=== PATIENT | male | born 2000 | race Caucasian/White ===

== ENCOUNTER 2021-01-15 19:49 | Emergency (ER) | payer SELFPAY ==
--- NOTE | 2021-01-15 20:39 | ER ---
Nurse's Notes [facility] Name: Cecilio Baxter Age: 20 yrs Sex: Male : 2000 Arrival Date: 01/15/2021 Time: 19:52 Bed 8 Private MD: Diagnosis: Dysuria Presentation: 01/15 20:01 Chief complaint: Patient states: yellow penile discharge and burning with urination for em 2 days, thinks it is STD. Coronavirus screen: Client denies travel out of the [place] in the last 14 days. Ebola Screen: Patient negative for fever greater than or equal to 101.5 degrees Fahrenheit, and additional compatible Ebola Virus Disease symptoms Patient denies exposure to infectious person. Patient denies travel to an Ebola-affected area in the 21 days before illness onset. No symptoms or risks identified at this time. Initial Sepsis Screen: Does the patient meet any 2 criteria? HR > 90 bpm. No. Patient's initial sepsis screen is negative. Does the patient have a suspected source of infection? No. Patient's initial sepsis screen is negative. Risk Assessment: Do you want to hurt yourself or someone else? Patient reports no desire to harm self or others. Onset of symptoms was January 13, 2021. 20:01 Method Of Arrival: Ambulatory em 20:01 Acuity: FIDEL 4 em Historical: - Allergies: 20:04 No Known Allergies; em - Home Meds: 20:04 None [Active]; em - PMHx: 20:04 Asthma; em - PSHx: 20:04 None; em - Immunization history:: Adult Immunizations up to date. - Social history:: Smoking status: Patient reports the use of cigarette tobacco products, smokes one-half pack cigarettes per day. Screenin:19 Abuse screen: Denies threats or abuse. Nutritional screening: No deficits noted. ea Tuberculosis screening: No symptoms or risk factors identified. Fall Risk None identified. Assessment: 20:18 General: Appears in no apparent distress. Behavior is calm, cooperative, appropriate ea for age. Pain: Denies pain. Neuro: Level of Consciousness is awake, alert, obeys commands, Oriented to person, place, time, situation. Cardiovascular: Patient's skin is warm and dry. Respiratory: Airway is patent Respiratory effort is even, unlabored, Respiratory pattern is regular, symmetrical. : Reports discharge, from penis that is. Derm: Skin is pink, warm \T\ dry. 20:45 Reassessment: Patient and/or family updated on plan of care and expected duration. Pain ea level reassessed. Patient is alert, oriented x 3, equal unlabored respirations, skin warm/dry/pink. Discharge instruction given to patient verbalized the understanding of instruction. Pt left ED ambulatory tolerating well. Vital Signs: 20:01 BP 133 / 80; Pulse 100; Resp 18; Temp 98.9; Pulse Ox 100% on R/A; Weight 83.91 kg; em Height 6 ft. 0 in. (182.88 cm); Pain 8/10; 20:01 Body Mass Index 25.09 (83.91 kg, 182.88 cm) em ED Course: 19:52 Patient arrived in ED. am4 20:03 Austin Cristina PA is PHCP. [facility] 20:03 Margarito Souza MD is Attending Physician. [facility] 20:04 Triage completed. em 20:04 Arm band placed on. em 20:18 Anna Prather, RN is Primary Nurse. ea 20:19 Patient has correct armband on for positive identification. Bed in low position. Call ea light in reach. 20:46 No provider procedures requiring assistance completed. Patient did not have IV access ea during this emergency room visit. Administered Medications: 20:40 Drug: Rocephin (cefTRIAXone) 250 mg Route: IM; Site: left deltoid; rr5 20:47 Follow up: Response: Medication administered at discharge. ea 20:43 Drug: AZITHromycin 1 grams Route: PO; rr5 20:47 Follow up: Response: Medication administered at discharge. ea 20:43 Drug: Flagyl 2 grams Route: PO; rr5 20:47 Follow up: Response: Medication administered at discharge. ea Outcome: 20:39 Discharge ordered by . [facility] 20:46 Discharged to home ambulatory. ea 20:46 Condition: stable 20:46 Discharge instructions given to patient, Instructed on discharge instructions, follow up and referral plans. Demonstrated understanding of instructions, follow-up care. 20:46 Patient left the ED. ea Signatures: Austin Cristina PA PA jmm Munoz, Edgar, RN RN Anna Prather RN RN ea Roque, Raymond, RN RN rr5 Araceli Santoyo am4
--- NOTE | 2021-01-15 20:40 | EDPHYS ---
Physician Documentation [facility] Name: Cecilio Baxter Age: 20 yrs Sex: Male : 2000 Arrival Date: 01/15/2021 Time: 19:52 Bed 8 Private MD: ED Physician Margarito Souza HPI: 01/15 20:36 This 20 yrs old Male presents to ER via Ambulatory with complaints of jmm Discharge. 20:36 The patient presents with urinary symptoms, dysuria. Onset: The symptoms/episode jmm began/occurred gradually, 2 day(s) ago. Modifying factors: The symptoms are alleviated by nothing, the symptoms are aggravated by nothing. Associated signs and symptoms: Pertinent positives: dysuria, Pertinent negatives: fever. The patient has not experienced similar symptoms in the past. . Historical: - Allergies: 20:04 No Known Allergies; em - Home Meds: 20:04 None [Active]; em - PMHx: 20:04 Asthma; em - PSHx: 20:04 None; em - Immunization history:: Adult Immunizations up to date. - Social history:: Smoking status: Patient reports the use of cigarette tobacco products, smokes one-half pack cigarettes per day. ROS: 20:36 Constitutional: Negative for fever, chills, and weight loss, Cardiovascular: Negative jmm for chest pain, palpitations, and edema, Respiratory: Negative for shortness of breath, cough, wheezing, and pleuritic chest pain. 20:36 : Positive for urinary symptoms. 20:36 All other systems are negative. Exam: 20:36 Constitutional: This is a well developed, well nourished patient who is awake, alert, jmm and in no acute distress. Head/Face: atraumatic. Eyes: EOMI, no conjunctival erythema appreciated ENT: Moist Mucus Membranes Neck: Trachea midline, Supple Chest/axilla: Normal chest wall appearance and motion. Cardiovascular: Regular rate and rhythm. No edema appreciated Respiratory: Normal respirations, no respiratory distress appreciated Abdomen/GI: Non distended, soft Back: Normal ROM Skin: General appearance color normal MS/ Extremity: Moves all extremities, no obvious deformities appreciated, no edema noted to the lower extremities Neuro: Awake and alert, normal gait Psych: Behavior is normal, Mood is normal, Patient is cooperative and pleasant Vital Signs: 20:01 BP 133 / 80; Pulse 100; Resp 18; Temp 98.9; Pulse Ox 100% on R/A; Weight 83.91 kg; em Height 6 ft. 0 in. (182.88 cm); Pain 8/10; 20:01 Body Mass Index 25.09 (83.91 kg, 182.88 cm) em MDM: 20:09 Patient medically screened. [facility] 20:37 Data reviewed: vital signs, nurses notes. Counseling: I had a detailed discussion with sameer the patient and/or guardian regarding: the historical points, exam findings, and any diagnostic results supporting the discharge/admit diagnosis, the need for outpatient follow up, to return to the emergency department if symptoms worsen or persist or if there are any questions or concerns that arise at home. 01/15 20:31 Order name: GC (GONORR/CHLAMYDIA) Probe [facility] 01/15 20:31 Order name: GC (Todd/Chl) Probe CX/URE EDOH Administered Medications: 20:40 Drug: Rocephin (cefTRIAXone) 250 mg Route: IM; Site: left deltoid; rr5 20:47 Follow up: Response: Medication administered at discharge. ea 20:43 Drug: AZITHromycin 1 grams Route: PO; rr5 20:47 Follow up: Response: Medication administered at discharge. ea 20:43 Drug: Flagyl 2 grams Route: PO; rr5 20:47 Follow up: Response: Medication administered at discharge. braden Disposition: 01/16 05:07 Co-signature as Attending Physician, Margarito Souza MD I agree with the assessment and [facility] plan of care. Disposition: 01/15/21 20:39 Discharged to Home. Impression: Dysuria. - Condition is Stable. - Discharge Instructions: Chlamydia, Male, Dysuria, Gonorrhea, Sexually Transmitted Disease. - Medication Reconciliation Form, Thank You Letter, Antibiotic Education, Prescription Opioid Use, Work release form form. - Follow up: Private Physician; When: 2 - 3 days; Reason: Recheck today's complaints, Continuance of care, Re-evaluation by your physician. Signatures: Dispatcher [employer] Margarito Acharya MD MD cha Mickail, Joel, PA PA jmm Munoz, Edgar, RN Anna Tabor RN Osvaldo Wood ea RN RN rr5 Corrections: (The following items were deleted from the chart) 01/15 20:46 20:39 01/15/2021 20:39 Discharged to Home. Impression: Dysuria. Condition is Stable. ea Forms are Medication Reconciliation Form, Thank You Letter, Antibiotic Education, Prescription Opioid Use. Follow up: Private Physician; When: 2 - 3 days; Reason: Recheck today's complaints, Continuance of care, Re-evaluation by your physician. sameer
[2021-01-15] MEDS ORDERED: AZITHROMYCIN 250 MG TAB ONE (20:51)
[2021-01-15] MEDS ORDERED: metroNIDAZOLE 500 MG TABLET ONE (20:52)
[2021-01-15] MEDS ORDERED: WATER FOR INJ,STERILE 10 ML ONE (20:52)
[2021-01-15] MEDS ORDERED: CEFTRIAXONE 250 MG/VIAL ONE (20:52)
[2021-01-15 22:27] VITALS: BP 133/80; TEMP 98.9; O2SAT 100
[2021-01-19 05:10] LABS: C.trachomatis RNA,TMA Detected (Not Detected)
== END 2021-01-15 20:46 | disposition home or self-care (01) ==
LOC: ER 19:49
DX: R30.0 Dysuria (principal); F17.210 Nicotine dependence, cigarettes, uncomplicated
CPT/HCPCS: 87490; 87590; 96372; 99283; J0696

== ENCOUNTER 2021-02-15 14:33 | Emergency (ER) | payer BC, SELFPAY ==
[2021-02-15] MEDS ORDERED: IBUPROFEN 200 MG TAB PO ONE (17:04)
[2021-02-15] MEDS ORDERED: IBUPROFEN 400 MG TAB ONE (17:05)
[2021-02-15] MEDS ORDERED: ALBUTEROL 2.5 MG/3 ML NEB SOL ONE (17:05)
[2021-02-15] MEDS ORDERED: IPRATROPIUM BROM 0.5MG/2.5ML ONE (17:05)
--- NOTE | 2021-02-15 17:43 | RAD REPORT ---
EXAM DESCRIPTION: RAD - Lumbar Spine 3 Views - 02/15/2021 5:31 pm CLINICAL HISTORY: Back pain FINDINGS: The alignment of the lumbar spine is satisfactory. No fracture or dislocation is seen. No bone or joint abnormality seen
--- NOTE | 2021-02-15 17:46 | ER ---
Nurse's Notes [facility] Name: Cecilio Baxter Age: 21 yrs Sex: Male : 2000 Arrival Date: 02/15/2021 Time: 14:34 Bed 14 Private MD: Diagnosis: Asthma Presentation: 02/15 14:52 Chief complaint: Patient states: Was working on my car, lifted something up on ca1 Thursday. An hour after my lower back started hurting, couldn't lift anything, couldn't sleep with the pain. And in the last 3 - 4 days, been having almost asthma attacks, and couldn't fine inhalers in my house. Denies cough. Coronavirus screen: Client denies travel out of the [place] in the last 14 days. difficulty breathing, shortness of breath, Client presents with at least one sign or symptom that may indicate coronavirus-19. Standard/surgical mask placed on the client. Provider contacted for isolation considerations. Ebola Screen: Patient negative for fever greater than or equal to 101.5 degrees Fahrenheit, and additional compatible Ebola Virus Disease symptoms Patient denies exposure to infectious person. Patient denies travel to an Ebola-affected area in the 21 days before illness onset. No symptoms or risks identified at this time. Initial Sepsis Screen: Does the patient meet any 2 criteria? No. Patient's initial sepsis screen is negative. Does the patient have a suspected source of infection? No. Patient's initial sepsis screen is negative. Risk Assessment: Do you want to hurt yourself or someone else? Patient reports no desire to harm self or others. Onset of symptoms was February 15, 2021. 14:52 Method Of Arrival: Ambulatory ca1 14:52 Acuity: FIDEL 3 ca1 Historical: - Allergies: 14:56 No Known Allergies; ca1 - Home Meds: 14:56 None [Active]; ca1 - PMHx: 14:56 Asthma; ca1 - PSHx: 14:56 None; ca1 - Immunization history:: Flu vaccine is not up to date. - Social history:: Smoking status: Patient/guardian denies using tobacco, but has a distant history of tobacco abuse, Patient/guardian denies using alcohol, street drugs, The patient lives with family. - Family history:: not pertinent. Screenin:52 Abuse screen: Denies threats or abuse. Nutritional screening: No deficits noted. bw Tuberculosis screening: No symptoms or risk factors identified. Fall Risk None identified. Assessment: 16:52 Pain: Complains of pain in lower back pain. Neuro: Level of Consciousness is awake, bw alert, obeys commands, Oriented to person, place, time, situation, Credit Administration Specialist are equal bilaterally Moves all extremities. Gait is steady, Speech is normal, Facial symmetry appears normal, Pupils are PERRLA. Cardiovascular: No deficits noted. Respiratory: Reports shortness of breath on exertion. GI: No deficits noted. : No deficits noted. EENT: No deficits noted. Derm: No deficits noted. Musculoskeletal: Reports pain in lower back. 18:05 Reassessment: Patient appears in no apparent distress at this time. Patient is alert, ca1 oriented x 3, equal unlabored respirations, skin warm/dry/pink. Vital Signs: 14:52 BP 121 / 71; Pulse 87; Resp 20 S; Temp 97.5(TE); Pulse Ox 100% on R/A; Weight 78.93 kg ca1 (R); Height 6 ft. 0 in. (182.88 cm) (R); Pain 10/10; 16:52 BP 120 / 68; Pulse 88; Resp 20; Pulse Ox 99% on R/A; bw 14:52 Body Mass Index 23.60 (78.93 kg, 182.88 cm) ca1 ED Course: 14:34 Patient arrived in ED. as 14:55 Triage completed. ca1 14:56 Arm band placed on right wrist. ca1 16:10 Tiffanie Torres MD is Attending Physician. ma2 16:43 Sandee Herman RN is Primary Nurse. bw 16:52 Patient has correct armband on for positive identification. Call light in reach. Side bw rails up X 1. Pulse ox on. NIBP on. Warm blanket given. 16:52 No provider procedures requiring assistance completed. Patient did not have IV access bw during this emergency room visit. 17:31 Lumbar Spine (3 Views) XRAY In Process Unspecified. EDMS Administered Medications: 16:51 Drug: DuoNeb (albuterol 2.5 mg, ipratropium 0.5 mg) (3:1) (2.5 mg - 0.5 mg) 3 ml Route: Nebulizer; 16:51 Drug: Motrin (ibuprofen) 600 mg Route: PO; bw Outcome: 17:46 Discharge ordered by . adwoa 18:10 Discharged to home ambulatory. ca1 18:10 Condition: stable 18:10 Discharge instructions given to patient, Instructed on discharge instructions, follow up and referral plans. medication usage, Demonstrated understanding of instructions, follow-up care, wound care, Prescriptions given X 3. 18:10 Patient left the ED. ca1 Signatures: Dispatcher [employer] Ana Haywood Mohammad, MD MD ma2 Christa Rivera RN RN ca1 Sandee Herman RN RN bw
--- NOTE | 2021-02-15 17:47 | EDPHYS ---
Physician Documentation [facility] Name: Cecilio Baxter Age: 21 yrs Sex: Male : 2000 Arrival Date: 02/15/2021 Time: 14:34 Bed 14 Private MD: ED Physician Tiffanie Torres HPI: 02/15 17:15 This 21 yrs old Male presents to ER via Ambulatory with complaints of Back ma2 Pain, Asthma Exacerbation. 17:15 The patient presents with pain that is acute. The symptoms are located in the low back. ma2 Onset: The symptoms/episode began/occurred gradually, 2 day(s) ago. Associated signs and symptoms: Pertinent negatives: abdominal pain, chest pain, constipation, dysuria, fever, headache, hematuria, incontinence, nausea, numbness, tingling, urinary retention, vomiting, weakness. Severity of symptoms: At their worst the symptoms were mild, in the emergency department the symptoms are unchanged. The patient has experienced similar episodes in the past. pain started w lifting heavy stuff. Historical: - Allergies: 14:56 No Known Allergies; ca1 - Home Meds: 14:56 None [Active]; ca1 - PMHx: 14:56 Asthma; ca1 - PSHx: 14:56 None; ca1 - Immunization history:: Flu vaccine is not up to date. - Social history:: Smoking status: Patient/guardian denies using tobacco, but has a distant history of tobacco abuse, Patient/guardian denies using alcohol, street drugs, The patient lives with family. - Family history:: not pertinent. ROS: 17:15 Constitutional: Negative for fever, chills, and weight loss. ma2 17:15 All other systems are negative. Exam: 17:15 Constitutional: This is a well developed, well nourished patient who is awake, alert, ma2 and in no acute distress. Head/Face: Normocephalic, atraumatic. Eyes: Pupils equal round and reactive to light, extra-ocular motions intact. Lids and lashes normal. Conjunctiva and sclera are non-icteric and not injected. Cornea within normal limits. Periorbital areas with no swelling, redness, or edema. ENT: Nares patent. No nasal discharge, no septal abnormalities noted. Tympanic membranes are normal and external auditory canals are clear. Oropharynx with no redness, swelling, or masses, exudates, or evidence of obstruction, uvula midline. Mucous membranes moist. Neck: Trachea midline, no thyromegaly or masses palpated, and no cervical lymphadenopathy. Supple, full range of motion without nuchal rigidity, or vertebral point tenderness. No Meningismus. Chest/axilla: Normal chest wall appearance and motion. Nontender with no deformity. No lesions are appreciated. Cardiovascular: Regular rate and rhythm with a normal S1 and S2. No gallops, murmurs, or rubs. Normal PMI, no JVD. No pulse deficits. Respiratory: Lungs have equal breath sounds bilaterally, clear to auscultation and percussion. No rales, rhonchi or wheezes noted. No increased work of breathing, no retractions or nasal flaring. Abdomen/GI: Soft, non-tender, with normal bowel sounds. No distension or tympany. No guarding or rebound. No evidence of tenderness throughout. Skin: Warm, dry with normal turgor. Normal color with no rashes, no lesions, and no evidence of cellulitis. MS/ Extremity: Pulses equal, no cyanosis. Neurovascular intact. Full, normal range of motion. Neuro: Awake and alert, GCS 15, oriented to person, place, time, and situation. Cranial nerves II-XII grossly intact. Motor strength 5/5 in all extremities. Sensory grossly intact. Cerebellar exam normal. Normal gait. Vital Signs: 14:52 BP 121 / 71; Pulse 87; Resp 20 S; Temp 97.5(TE); Pulse Ox 100% on R/A; Weight 78.93 kg ca1 (R); Height 6 ft. 0 in. (182.88 cm) (R); Pain 10/10; 16:52 BP 120 / 68; Pulse 88; Resp 20; Pulse Ox 99% on R/A; bw 14:52 Body Mass Index 23.60 (78.93 kg, 182.88 cm) ca1 MDM: 16:10 Patient medically screened. mn2 17:15 Differential diagnosis: sprain, low back pain, with no red flags. ma2 17:46 Data reviewed: vital signs, nurses notes. Counseling: I had a detailed discussion with ma2 the patient and/or guardian regarding: the historical points, exam findings, and any diagnostic results supporting the discharge/admit diagnosis, the presence of at least one elevated blood pressure reading (>120/80) during this emergency department visit, the need for outpatient follow up. Response to treatment: the patient's symptoms have markedly improved after treatment. 02/15 16:33 Order name: Lumbar Spine (3 Views) ANNETTE [email or web address] Administered Medications: 16:51 Drug: DuoNeb (albuterol 2.5 mg, ipratropium 0.5 mg) (3:1) (2.5 mg - 0.5 mg) 3 ml Route: bw Nebulizer; 16:51 Drug: Motrin (ibuprofen) 600 mg Route: PO; Disposition: 02/15/21 17:46 Discharged to Home. Impression: Asthma. - Condition is Stable. - Discharge Instructions: Asthma, Adult, [id number]. - Prescriptions for Cyclobenzaprine 10 mg Oral Tablet - take 1 tablet by ORAL route every 8 hours As needed; 30 tablet. Diclofenac Sodium 75 mg Oral Tablet Sustained Release - take 1 tablet by ORAL route 2 times per day; 30 tablet. Albuterol Sulfate 90 mcg/actuation - inhale 1-2 puff by INHALATION route every 4-6 hours; 1 Inhaler. - Medication Reconciliation Form, Thank You Letter, Antibiotic Education, Prescription Opioid Use, Work release form form. - Follow up: Private Physician; When: Tomorrow; Reason: If symptoms return, Continuance of care. Signatures: Dispatcher [employer] EDMS Tiffanie Torres MD MD ma2 Christa Rivera RN RN [facility] Sandee Herman RN RN Corrections: (The following items were deleted from the chart) 18:10 17:46 02/15/2021 17:46 Discharged to Home. Impression: Asthma. Condition is Stable. ca1 Discharge Instructions: Asthma, Adult, [id number]. Prescriptions for Cyclobenzaprine 10 mg Oral Tablet - take 1 tablet by ORAL route every 8 hours As needed; 30 tablet, Diclofenac Sodium 75 mg Oral Tablet Sustained Release - take 1 tablet by ORAL route 2 times per day; 30 tablet, Albuterol Sulfate 90 mcg/actuation - inhale 1-2 puff by INHALATION route every 4-6 hours; 1 Inhaler. and Forms are Medication Reconciliation Form, Thank You Letter, Antibiotic Education, Prescription Opioid Use. Follow up: Private Physician; When: Tomorrow; Reason: If symptoms return, Continuance of care. ma2
[2021-02-16 06:22] VITALS: TEMP 97.5
[2021-02-16 06:25] VITALS: BP 120/68; O2SAT 99
== END 2021-02-15 18:10 | disposition home or self-care (01) ==
LOC: ER 14:33
DX: M54.5 Low back pain (principal); J45.909 Unspecified asthma, uncomplicated
CPT/HCPCS: 72100; 99284

== ENCOUNTER 2022-01-03 22:47 | Inpatient (IN) | payer BC ==
[2022-01-03 23:23] LABS: Urine Blood Negative (Negative); Urine Glucose Negative (Negative); Urine Protein Negative (Negative); Urine Specific Gravity >=1.030 (1.005-1.030)
[2022-01-03 23:25] LABS: Absolute Lymphocytes (CBC) 2.3 K/uL (0.7-4.9); Hematocrit 42.7 % (39.6-49.0); Lymphocytes % 18.3 % (15.3-44.8); MPV 10.6 fL (7.6-11.3); RBC Red Blood Cell Count 4.85 M/uL (4.33-5.43)
[2022-01-03] MEDS ORDERED: NA CHLORIDE 0.9% 1,000 ML ONE (23:31)
[2022-01-03] MEDS ORDERED: MORPHINE 4 MG/ML SYR ONE (23:31)
[2022-01-03] MEDS ORDERED: ONDANSETRON 4 MG/2 ML VIAL ONE (23:31)
[2022-01-03 23:36] LABS: Albumin 4.4 g/dL (3.4-5.0); Bilirubin Direct 0.3 mg/dL (0-0.2); Bilirubin Total 1.7 mg/dL (0.2-1.0); Protein, Total 7.9 g/dL (6.4-8.2)
[2022-01-04] MEDS ORDERED: MORPHINE 4 MG/ML SYR ONE (01:13)
--- NOTE | 2022-01-04 01:37 | ER ---
Nurse's Notes [facility] Name: Cecilio Baxter Age: 21 yrs Sex: Male : 2000 Arrival Date: 01/03/2022 Time: 22:50 Bed 7 Private MD: Diagnosis: Acute appendicitis with localized peritonitis;Lower abdominal pain, unspecified Presentation: 01/03 22:56 Chief complaint: Patient states: States "I was lifting a bumper and I heard my stomach ll3 pop, then I kept going, then later on I was lifting fire wood and after that I couldn't stand up straight". Coronavirus screen: Vaccine status: Patient reports being unvaccinated. At this time, the client does not indicate any symptoms associated with coronavirus-19. Ebola Screen: No symptoms or risks identified at this time. Initial Sepsis Screen: Does the patient meet any 2 criteria? No. Patient's initial sepsis screen is negative. Does the patient have a suspected source of infection? No. Patient's initial sepsis screen is negative. Risk Assessment: Do you want to hurt yourself or someone else? Patient reports no desire to harm self or others. Onset of symptoms was January 03, 2022 at 20:15. 22:56 Method Of Arrival: Wheelchair ll3 22:56 Acuity: FIDEL 3 ll3 Triage Assessment: 23:00 General: Appears comfortable, Behavior is cooperative, crying. Pain: Complains of pain ll3 in right lower quadrant Pain does not radiate. Pain currently is 10 out of 10 on a pain scale. Pain began 3 hours ago. Is continuous, Alleviated by repositioning, Aggravated by Sitting up straight Noted to be crying, guarding, moaning, Hunched over. Neuro: Level of Consciousness is awake, alert, obeys commands, Oriented to person, place, time, situation. Cardiovascular: Patient's skin is warm and dry. Respiratory: Respiratory effort is even, unlabored, Respiratory pattern is regular, symmetrical. GI: Abdomen is flat, non-distended, Reports lower abdominal pain, vomiting. Derm: Skin is pink, warm \\T\\ dry. Historical: - Allergies: 23:00 ADHD; ll3 - PMHx: 23:00 Asthma; Bipolar disorder; ADHD; ll3 - PSHx: 23:00 None; ll3 - Immunization history:: Client reports having NOT received the Covid vaccine. - Social history:: Smoking status: Reported history of juuling and/or vaping. Screenin:16 Abuse screen: Denies threats or abuse. Nutritional screening: No deficits noted. ss7 Tuberculosis screening: No symptoms or risk factors identified. Fall Risk None identified. Primary Survey: 23:17 NO uncontrolled hemorrhage observed. A: Airway:. Breathing/Chest: Respiratory pattern: ss7 regular. Circulation: Cardiac rhythm: sinus rhythm. Disability Alert. Exposure/Environment: All clothing and personal items were removed. Forensic evidence collection is not deemed to be indicated at this time. Items placed in patient belonging bag. Assessment: 23:15 General: Appears distressed, uncomfortable, slender, Behavior is calm, anxious. ss7 Cardiovascular: No deficits noted. Respiratory: No deficits noted. GI: Bowel sounds present X 4 quads. Abdomen is tender to palpation X 4 quads. Reports lower abdominal pain, diarrhea, nausea, vomiting, Patient currently denies abdominal pain, diarrhea, nausea. : No deficits noted. EENT: No deficits noted. Derm: No deficits noted. Musculoskeletal: No deficits noted. Vital Signs: 22:56 BP 120 / 86; Pulse 94; Resp 18; Temp 99.2(TE); Pulse Ox 98% on R/A; Weight 81.65 kg ll3 (R); Height 6 ft. 1 in. (185.42 cm) (R); Pain 10/10; 01/04 02:48 BP 122 / 71; Pulse 69; Resp 18; Pulse Ox 98% ; sf1 03:21 BP 112 / 71; Pulse 66; Resp 18; Pulse Ox 98% on R/A; sf1 01/03 22:56 Body Mass Index 23.75 (81.65 kg, 185.42 cm) ll3 [place] Coma Score: 01/03 23:17 Eye Response: spontaneous(4). Verbal Response: oriented(5). Motor Response: obeys ss7 commands(6). Total: 15. Trauma Score (Adult): 23:17 Eye Response: spontaneous(1); Verbal Response: oriented(1); Motor Response: obeys ss7 commands(2); Systolic BP: > 89 mm Hg(4); Respiratory Rate: 10 to 29 per min(4); [place] Score: 15; Trauma Score: 12 ED Course: 22:50 Patient arrived in ED. jj6 22:54 Richard Call MD is Attending Physician. kdr 23:00 Triage completed. ll3 23:00 Arm band placed on. ll3 23:16 Patient has correct armband on for positive identification. Bed in low position. Call ss7 light in reach. Adult w/ patient. 23:17 Patient maintains SpO2 saturation greater than 95% on room air. ss7 23:25 Inserted saline lock: 20 gauge in right antecubital area, using aseptic technique. lr4 23:26 Basic Metabolic Panel Sent. ss7 23:26 Hepatic Function Sent. ss7 23:26 Lipase Sent. ss7 23:26 Inserted saline lock: 20 gauge in right antecubital area, using aseptic technique. ss7 23:29 Alison Voss, SHELDON is Primary Nurse. st1 01/04 00:47 CT Abd/Pelvis - IV Contrast Only Sent. st1 00:48 CT Abd/Pelvis - IV Contrast Only In Process Unspecified. EDMS 01:35 Ruddy Allen MD is Hospitalizing Provider. kdr 02:45 COVID-19 SARS RT PCR (Document "Date of Onset" if Symptomatic) Sent. sf1 Administered Medications: 01/03 23:31 Drug: morphine 4 mg Route: IVP; Site: right antecubital; lr4 23:31 Drug: Zofran (Ondansetron) 4 mg Route: IVP; Site: right antecubital; lr4 23:31 Drug: NS 0.9% 1000 ml Route: IV; Rate: 1 bolus; Site: right antecubital; lr4 01/04 01:18 Drug: morphine 4 mg Route: IVP; Site: right antecubital; sf1 02:10 Drug: Flagyl (metroNIDAZOLE) 500 mg Volume: 100 ml; Route: IVPB; Rate: 200 ml/hr; sf1 Infused Over: 30 mins; Site: right antecubital; 02:48 Drug: Zosyn (piperacillin-tazobactam) 3.375 grams Route: IVPB; Infused Over: 60 mins; sf1 Site: right antecubital; Outcome: 01:36 Decision to Hospitalize by Provider. kdr 03:58 Patient left the ED. sf1 Signatures: Dispatcher [employer] EDMS Rittger, Richard, Kate Arrieta MD jj6 Eusebia Aguilera RN RN ll3 Alison Voss, RN RN st1 Chioma Mejía RN RN sf1 Kyara Márquez RN RN ss7 Charis Suero, RN RN lr4 Corrections: (The following items were deleted from the chart) 01/03 23:01 23:00 Allergies: No Known Allergies; ll3 ll3
--- NOTE | 2022-01-04 01:37 | EDPHYS ---
Physician Documentation [facility] Name: Cecilio Baxter Age: 21 yrs Sex: Male : 2000 Arrival Date: 01/03/2022 Time: 22:50 Bed 7 Private MD: ED Physician Richard Call HPI: 01/04 06:54 This 21 yrs old Male presents to ER via Wheelchair with complaints of Abdominal Injury, kdr Nausea/Vomiting. 06:54 The patient presents with abdominal pain in the right upper quadrant, right lower kdr quadrant. Onset: The symptoms/episode began/occurred this morning, today. The symptoms do not radiate. Associated signs and symptoms: none. Pertinent positives: nausea, Pertinent negatives: anorexia, blood in stools, chest pain, constipation, diarrhea, dysuria, palpitations, shortness of breath, testicular pain, vomiting, vomiting blood. The symptoms are described as achy, sharp, steady. Modifying factors: The symptoms are alleviated by nothing, the symptoms are aggravated by breathing deeply, movement, touching the area. Severity of pain: At its worst the pain was moderate incapacitating just prior to arrival, in the emergency department the pain is unchanged. The patient has not experienced similar symptoms in the past. The patient has not recently seen a physician. Patient states that he was lifting a bottle today and had acute onset of abdominal pain. He had and was subsequently lifting some wood and felt increased pain.. Historical: - Allergies: 01/03 23:00 ADHD; ll3 - PMHx: 23:00 Asthma; Bipolar disorder; ADHD; ll3 - PSHx: 23:00 None; ll3 - Immunization history:: Client reports having NOT received the Covid vaccine. - Social history:: Smoking status: Reported history of juuling and/or vaping. ROS: 01/04 06:54 Constitutional: Negative for fever, chills, and weight loss, Eyes: Negative for injury, kdr pain, redness, and discharge, Neck: Negative for injury, pain, and swelling, Cardiovascular: Negative for chest pain, palpitations, and edema, Respiratory: Negative for shortness of breath, cough, wheezing, and pleuritic chest pain, Back: Negative for injury and pain, : Negative for injury, bleeding, discharge, and swelling, MS/Extremity: Negative for injury and deformity, Skin: Negative for injury, rash, and discoloration, Neuro: Negative for headache, weakness, numbness, tingling, and seizure activity. Psych: Negative for depression, anxiety, suicide ideation, homicidal ideation, and hallucinations, Allergy/Immunology: Negative for hives, rash, and allergies, Endocrine: Negative for neck swelling, polydipsia, polyuria, polyphagia, and marked weight changes, Hematologic/Lymphatic: Negative for swollen nodes, abnormal bleeding, and unusual bruising. Abdomen/GI: Positive for abdominal pain, nausea, Negative for vomiting, diarrhea, constipation, abdominal cramps, abdominal distension, anorexia, dysphagia, hematemesis, black/tarry stool, rectal pain, rectal bleeding, bowel incontinence. Exam: 06:54 Constitutional: This is a well developed, well nourished patient who is awake, alert, kdr and in no acute distress. Head/Face: Normocephalic, atraumatic. Eyes: Pupils equal round and reactive to light, extra-ocular motions intact. Lids and lashes normal. Conjunctiva and sclera are non-icteric and not injected. Cornea within normal limits. Periorbital areas with no swelling, redness, or edema. Neck: Trachea midline, no thyromegaly or masses palpated, and no cervical lymphadenopathy. Supple, full range of motion without nuchal rigidity, or vertebral point tenderness. No Meningismus. Chest/axilla: Normal chest wall appearance and motion. Nontender with no deformity. No lesions are appreciated. Cardiovascular: Regular rate and rhythm with a normal S1 and S2. No gallops, murmurs, or rubs. Normal PMI, no JVD. No pulse deficits. Respiratory: Lungs have equal breath sounds bilaterally, clear to auscultation and percussion. No rales, rhonchi or wheezes noted. No increased work of breathing, no retractions or nasal flaring. Back: No spinal tenderness. No costovertebral tenderness. Full range of motion. Skin: Warm, dry with normal turgor. Normal color with no rashes, no lesions, and no evidence of cellulitis. MS/ Extremity: Pulses equal, no cyanosis. Neurovascular intact. Full, normal range of motion. Neuro: Awake and alert, GCS 15, oriented to person, place, time, and situation. Cranial nerves II-XII grossly intact. Motor strength 5/5 in all extremities. Sensory grossly intact. Cerebellar exam normal. Normal gait. Psych: Awake, alert, with orientation to person, place and time. Behavior, mood, and affect are within normal limits. 06:54 Abdomen/GI: Inspection: abdomen appears normal, Bowel sounds: active, all quadrants, Palpation: moderate abdominal tenderness, in the right upper quadrant and right lower quadrant, rebound tenderness, is not appreciated. Vital Signs: 01/03 22:56 BP 120 / 86; Pulse 94; Resp 18; Temp 99.2(TE); Pulse Ox 98% on R/A; Weight 81.65 kg ll3 (R); Height 6 ft. 1 in. (185.42 cm) (R); Pain 10/10; 01/04 02:48 BP 122 / 71; Pulse 69; Resp 18; Pulse Ox 98% ; sf1 03:21 BP 112 / 71; Pulse 66; Resp 18; Pulse Ox 98% on R/A; sf1 01/03 22:56 Body Mass Index 23.75 (81.65 kg, 185.42 cm) ll3 [place] Coma Score: 01/03 23:17 Eye Response: spontaneous(4). Verbal Response: oriented(5). Motor Response: obeys ss7 commands(6). Total: 15. Trauma Score (Adult): 23:17 Eye Response: spontaneous(1); Verbal Response: oriented(1); Motor Response: obeys ss7 commands(2); Systolic BP: > 89 mm Hg(4); Respiratory Rate: 10 to 29 per min(4); [place] Score: 15; Trauma Score: 12 MDM: 01/04 01:36 Patient medically screened. kdr 07:08 Data reviewed: vital signs, nurses notes. Counseling: I had a detailed discussion with kdr the patient and/or guardian regarding: the historical points, exam findings, and any diagnostic results supporting the discharge/admit diagnosis, lab results, radiology results. 01/03 22:56 Order name: Basic Metabolic Panel; Complete Time: 23:38 kdr 01/03 22:56 Order name: CBC with Diff; Complete Time: 23:38 kdr 01/03 22:56 Order name: Hepatic Function; Complete Time: 23:38 kdr 01/03 22:56 Order name: Lipase; Complete Time: 23:38 kdr 01/03 23:23 Order name: Urine Dipstick-Ancillary; Complete Time: 23:38 EDMS 01/04 01:50 Order name: Basic Metabolic Panel EDMS 01/04 01:50 Order name: Basic Metabolic Panel EDMS 01/04 01:50 Order name: CBC with Automated Diff EDMS 01/04 01:50 Order name: CBC with Automated Diff EDMS 01/04 01:50 Order name: Lipase EDMS 01/04 01:50 Order name: Lipase EDMS 01/04 01:50 Order name: Liver (Hepatic) Function EDMS 01/04 01:50 Order name: Liver (Hepatic) Function EDMS 01/03 22:56 Order name: IV Saline Lock; Complete Time: 23:25 kdr 01/03 22:56 Order name: Labs collected and sent; Complete Time: 23:25 kdr 01/03 23:26 Order name: CT Abd/Pelvis - IV Contrast Only kdr 01/04 01:50 Order name: NPO EDMS 01/04 02:41 Order name: COVID-19 SARS RT PCR (Document "Date of Onset" if Symptomatic) bb 01/04 03:27 Order name: SARS-COV-2 RT PCR EDMS Administered Medications: 01/03 23:31 Drug: morphine 4 mg Route: IVP; Site: right antecubital; lr4 23:31 Drug: Zofran (Ondansetron) 4 mg Route: IVP; Site: right antecubital; lr4 23:31 Drug: NS 0.9% 1000 ml Route: IV; Rate: 1 bolus; Site: right antecubital; lr4 01/04 01:18 Drug: morphine 4 mg Route: IVP; Site: right antecubital; sf1 02:10 Drug: Flagyl (metroNIDAZOLE) 500 mg Volume: 100 ml; Route: IVPB; Rate: 200 ml/hr; sf1 Infused Over: 30 mins; Site: right antecubital; 02:48 Drug: Zosyn (piperacillin-tazobactam) 3.375 grams Route: IVPB; Infused Over: 60 mins; sf1 Site: right antecubital; Disposition Summary: 01/04/22 01:36 Hospitalization Ordered Hospitalization Status: Inpatient Admission kdr Provider: Ruddy Allen Location: Telemetry/MedSurg (Inpatient) kdr Condition: Fair kdr Problem: new kdr Symptoms: have improved kdr Bed/Room Type: Standard kdr Room Assignment: 209(01/04/22 03:37) cg Diagnosis - Acute appendicitis with localized peritonitis kdr - Lower abdominal pain, unspecified kdr Forms: - Medication Reconciliation Form kdr - SBAR form kdr Signatures: Dispatcher [employer] EDRichard Hernandez MD MD kdr Aggie Medina, RN RN Zarina Thompson RN RN cg Loubet, Lynsea, RN RN ll3 Chioma Mejía RN RN sf1 Charis Suero RN RN lr4 Corrections: (The following items were deleted from the chart) 01/03 23:01 23:00 Allergies: No Known Allergies; ll3 ll3 01/04 03:37 01:36 kdr cg
[2022-01-04] MEDS ORDERED: ONDANSETRON 4 MG/2 ML VIAL IV PRN (01:46)
[2022-01-04] MEDS ORDERED: ACETAMINOPHEN 500 MG TAB PO PRN (01:46)
[2022-01-04] MEDS ORDERED: NA CHLORIDE 0.9% 100 ML IV ONE (02:06)
[2022-01-04] MEDS ORDERED: PIPERACIL/TAZO 3.375 GM VIAL IV ONE (02:06)
[2022-01-04] MEDS ORDERED: METRONIDAZOLE 500mg IVPB 500 MG/100 ML BAG IV ONE (02:06)
[2022-01-04 04:14] VITALS: BMI 20.5
[2022-01-04] MEDS: D5 0.45 NS 1,000 ML IV SCH ×4 (04:19→23:47)
[2022-01-04] MEDS: MORPHINE 4 MG/ML SYR IV PRN ×2 (05:11→19:38)
[2022-01-04] MEDS: METRONIDAZOLE 500mg IVPB 500 MG/100 ML BAG IV SCH ×4 (06:00→23:33)
[2022-01-04] MEDS: PIPER TAZO 3.375 GM in NA CHLORIDE 0.9% 100 ML IV SCH ×2 (09:00→16:22)
[2022-01-04] MEDS ORDERED: Ringers Lactate 1,000 ML IV ONE ×2 (10:34→14:18)
[2022-01-04] MEDS: HYDROMORPHONE HCL 1 MG/ML INJ ONE ×4 (10:35→14:25)
--- NOTE | 2022-01-04 12:20 | P.HP ---
Date of Service: 01/04/22 PC: This 21-year-old male presented to the emergency room with severe right lower quadrant abdominal pain for diagnosis and treatment. HPC: Patient's had sudden onset of abdominal pain since yesterday afternoon. Pain progressively got worse throughout the day. Came to the emergency room at that time. He was hardly able to walk and could not keep any food down. PSHx: Negative PMHx: Negative Social Hx: No known allergies, smokes cigarettes on a regular basis as well as drinks alcohol Sys R: No cough, wheeze, shortness of breath. No chest pain or palpitations. Denies any urinary complaints. Currently unemployed. O/E: Awake alert vital signs are stable HEENT: Nonicteric Chest: Air entry equal bilaterally Abd: Tender in the right lower quadrant with guarding [place]: Intact Data: CT scan demonstrates early appendicitis Impression: CT scan supports clinical diagnosis of acute abdomen with appendicitis Plan: I will taken the operating room for laparoscopic possible open appendectomy. The risks of this procedure have been discussed. The possibility of bleeding, infection, injury to bowel and surrounding structures has been outlined. The possible need for open and/or further surgeries or procedures was discussed. He understands and wants us to proceed.
[2022-01-04] MEDS ORDERED: LIDOCAINE 1% MPF 5 ML VIAL ONE (12:40)
[2022-01-04] MEDS ORDERED: propofoL 200 MG/20 ML VIAL IV ONE (12:40)
[2022-01-04] MEDS ORDERED: ROCURONIUM 50 MG/5 ML VIAL IV ONE (12:41)
[2022-01-04] MEDS ORDERED: FENTANYL CITR 100 MCG/2 ML ONE ×2 (12:41→13:29)
[2022-01-04] MEDS ORDERED: dexAMETHasone 10 MG/ML VIAL ONE (13:11)
[2022-01-04] MEDS ORDERED: ONDANSETRON 4 MG/2 ML VIAL ONE ×2 (13:12→14:17)
[2022-01-04] MEDS ORDERED: KETOROLAC 30 MG/ML INJ ONE (13:12)
[2022-01-04] MEDS ORDERED: GLYCOPYRROLATE 0.2 MG/ML SYR ONE ×3 (13:24→13:53)
[2022-01-04] MEDS ORDERED: NEOSTIGMINE 1 MG/ML -5 ML ONE (13:28)
--- NOTE | 2022-01-04 13:54 | P.OP ---
Preoperative diagnosis: Acute abdomen acute abdomen Postoperative diagnosis: Acute appendicitis Primary procedure: Laparoscopic appendectomy Secondary procedure: Tap block Anesthesia: General Estimated blood loss: Less than 10 cc Specimen: 1 appendix Operative Technique: The patient brought the operating room and placed a subumbilical incision was made. This was brought down through the skin and subcutaneous tissue. The Visiport was used to enter the peritoneal cavity and created pneumoperitoneum at approximately 12 mmHg. Under direct vision a 5 mm trocar was placed in t the right lateral side of the abdomen. Another 5 mm trocar was placed between the umbilicus and the pubic symphysis. The patient was now placed in marked Trendelenburg and the table rolled to the left. We could visualize the right lower quadrant. We could see on the skin the stomach may a markedly inflamed appendix in the right lower quadrant. The appendix was grasped. A window was made in the mesentery of the appendix. The junction of the cecum with the appendix was identified. A window was made in the peritoneum at this point. The linear stapler was now introduced by converting the 10 mm trocar at the umbilicus to a 12. The stapling device was placed across the base of the appendix. The instrument was fired. The mesentery of the appendix was now inspected. We were able to contain the vasculature by taking it down using the electrocautery. The specimen having been detached was now placed into an Endopouch, and brought out through the umbilical trocar site. Attention was tur ryland back towards the right lower quadrant. The area was inspected to ensure adequate hemostasis. Attention was turned back towards the umbilicus. The Endo Close was to approximate the fascial defect at this point with an absorbable suture. With the patient replaced back in the neutral position on the OR table the pneumoperitoneum was collapsed, the trochars removed, and the suture tied. It should be mentioned that a tap block using 0.25% Marcaine was done on both sides prior to the deflation of the pneumoperitoneum. At this point bethany were applied to the skin. At the end of the procedure he was stable and sent to the recovery room. Needle sponge instrument count were correct. No drains were placed. Complications: None Transferred to: Recovery Room Condition: Good
[2022-01-04] MEDS ORDERED: HYDROMORPHONE HCL 1 MG/ML INJ ONE (14:39)
--- NOTE | 2022-01-04 17:28 | RAD REPORT ---
EXAM DESCRIPTION: CT - Abdomen Pelvis W Contrast - 01/04/2022 3:56 am ADDENDUM #1 Addendum: THIS REPORT CONTAINS FINDINGS THAT MAY BE CRITICAL TO PATIENT'S CARE: The findings were verbally discussed via telephone conference with Richard aCll by Dr. Paulino on 1:08 AM CONCERT PROMOTER. The results were acknowledged and understood. Electronically signed by: Chris Paulino DO 01/04/2022 1:08 AM CONCERT PROMOTER End of Addendum EXAM DESCRIPTION: CT Abdomen and Pelvis With Intravenous Contrast CLINICAL HISTORY: The patient is 21 years old and is Male; ABD PAIN TECHNIQUE: Axial computed tomography images of the abdomen and pelvis with intravenous contrast. S agittal and coronal reformatted images were created and reviewed. This CT exam was performed using one or more of the following dose reduction techniques: automated exposure control, adjustment of t he mA and/or kV according to patient size, and/or use of iterative reconstruction technique. DLP: 889 mGy*cm COMPARISON: None. FINDINGS: LUNG BASES: Lung bases are clear. HEART: Visualized heart is normal. ABDOMEN: LIVER: Unremarkable. No mass. GALLBLADDER AND BILE DUCTS: Unremarkable. No calcified stones. No ductal dilation. PANCREAS: Unremarkable. No mass. No ductal dilation. SPLEEN: Unremarkable. No splenomegaly. ADRENALS: Unremarkable. No mass. KIDNEYS AND URETERS: Unremarkable. No solid mass. No hydronephrosis. STOMACH AND BOWEL: Unremarkable. No obstruction. No mucosal thickening. PELVIS: APPENDIX: Thickening of the appendix measuring 8.2 mm. Mild periappendiceal stranding and mucosal e nhancement. BLADDER: Unremarkable. No mass. REPRODUCTIVE: Unremarkable as visualized. ABDOMEN and PELVIS: INTRAPERITONEAL SPACE: Unremarkable. No free air. No significant fluid collection. BONES/JOINTS: No acute fracture. No dislocation. SOFT TISSUES: Unremarkable. VASCULATURE: Unremarkable. No abdominal aortic aneurysm. LYMPH NODES: Unremarkable. No enlarged lymph nodes. IMPRESSION: Findings most suggestive of acute appendicitis. No perforation or abscess formation. Electronically signed by: Chris Paulino DO 01/04/2022 12:56 AM CONCERT PROMOTER Due to temporary technical issues with the PACS/Fluency reporting system, reports are being signed by the in house radiologists without review as a courtesy to insure prompt reporting. The interpreting radiologist is fully responsible for the content of the report.
[2022-01-04 21:56] VITALS: O2SAT 98
[2022-01-04] MEDS: HYDROCODONE/APAP 7.5/325 MG TAB PO PRN (23:32)
[2022-01-05] MEDS: PIPER TAZO 3.375 GM in NA CHLORIDE 0.9% 100 ML IV SCH ×2 (00:32→08:11)
[2022-01-05] MEDS: HYDROCODONE/APAP 7.5/325 MG TAB PO PRN (04:46)
[2022-01-05] MEDS: METRONIDAZOLE 500mg IVPB 500 MG/100 ML BAG IV SCH (05:16)
[2022-01-05 06:34] VITALS: BP 97/43; TEMP 99
[2022-01-05] MEDS: D5 0.45 NS 1,000 ML IV SCH (08:11)
== END 2022-01-05 09:43 | disposition home or self-care (01) | DRG 343 ==
LOC: ER 22:47 → ERHOLD 01-04 01:57 → 2ND 01-04 03:41
PROVIDERS: ADMIT Surgery; ATTEND Surgery
PROC: 0DTJ4ZZ Resection of Appendix, Percutaneous Endoscopic Approach (ICD-10-PCS; principal; 2022-01-04 10:45)
DX: K35.80 Unspecified acute appendicitis (principal); Z20.822 Contact with and (suspected) exposure to COVID-19
CPT/HCPCS: 36415; 74177; 80048; 80076; 81003; 83690; 85025; 88304; 94010; 96374; 96375; 99284; J1100; J1170; J2405; J2543; J2704; J2710; J3010; J7030; J7120; J7799; Q9967; U0003

== ENCOUNTER 2022-01-17 00:21 | Emergency (ER) | payer BC, OTHER, SELFPAY ==
[2022-01-17] MEDS ORDERED: DIPHENHYDRAMINE 50 MG/ML VIAL ONE (01:29)
[2022-01-17] MEDS ORDERED: FAMOTIDINE 20 MG/2 ML VIAL IV ONE (01:29)
[2022-01-17] MEDS ORDERED: METHYLPREDNISOLONE 125 MG INJ ONE (01:29)
--- NOTE | 2022-01-17 02:16 | EDPHYS ---
Physician Documentation [facility] Name: Cecilio Baxter Jr Age: 21 yrs Sex: Male : 2000 Arrival Date: 01/17/2022 Time: 00:29 Bed 14 Private MD: ED Physician Sheryl Longo HPI: 01/17 00:54 This 21 yrs old Unknown Male presents to ER via Ambulatory with complaints of Allergy cp Symptoms, Anxiety. 00:55 The patient presents with shortness of breath. cp 00:55 Onset: The symptoms/episode began/occurred last night. Associated signs and symptoms: cp Pertinent positives: dysphagia, shortness of breath, Pertinent negatives: abdominal pain, chest pain, rash, vomiting. 00:55 Possible causes: Patient reports eating seafood dish this evening that contained shrimp cp and oyster juice. Patient denies seafood allergy in the past and admits to inhaling "whippets" a couple days ago. Patient also would like abdominal surgical incisions inspected and bethany removed. Patient reports having appendectomy about 1 week ago. 00:55 At home the patient or guardian has treated the symptoms with Benadryl. cp 00:55 Severity of symptoms: in the emergency department the symptoms are unchanged despite cp home interventions. Historical: - Allergies: 00:41 No Known Allergies; lg3 - Home Meds: 00:41 None [Active]; lg3 - PMHx: 00:41 adhd; Asthma; Bipolar disorder; lg3 - PSHx: 00:41 Appendectomy; lg3 - Immunization history:: Adult Immunizations up to date, Client reports having NOT received the Covid vaccine. - Social history:: Smoking status: Reported history of juuling and/or vaping. Patient uses alcohol, occasionally. street drugs, LSD. Vital Signs: 00:34 BP 137 / 90; Pulse 77; Resp 18 S; Temp 98.1; Pulse Ox 100% on R/A; Weight 68.04 kg (R); lg3 Height 6 ft. (182.88 cm) (R); Pain 0/10; 01:41 BP 154 / 85 RA Sitting (auto/reg); Pulse 73 MON; Resp 22 S; Temp 98.5(O); Pulse Ox 98% sv1 on R/A; 02:18 BP 101 / 56 RA Sitting (auto/reg); Pulse 62 MON; Resp 16 S; Pulse Ox 100% on R/A; Pain sv1 0/10; 00:34 Body Mass Index 20.34 (68.04 kg, 182.88 cm) lg3 MDM: 00:54 Patient medically screened. cp 01/17 00:54 Order name: IV; Complete Time: 01:37 cp Administered Medications: 01:36 Drug: Pepcid (famotidine) 20 mg Route: IVP; Site: right antecubital; sv1 02:17 Follow up: Response: No adverse reaction; Wheezing diminished sv1 01:37 Drug: SOLU-Medrol (methylPrednisoLONE) 125 mg Route: IVP; Site: right antecubital; sv1 02:18 Follow up: Response: No adverse reaction; Wheezing diminished sv1 01:37 Drug: Benadryl (diphenhydrAMINE) 25 mg Route: IVP; Site: right antecubital; sv1 02:17 Follow up: Response: No adverse reaction; Anxiety decreased; Wheezing diminished sv1 01:37 Drug: NS 0.9% 500 ml Route: IV; Rate: 500 ml/hr; Site: right antecubital; sv1 01:48 Follow up: Response: No adverse reaction; IV Status: Completed infusion; IV Intake: sv1 500ml Disposition Summary: 01/17/22 02:16 Discharge Ordered Location: Home cp Problem: new cp Symptoms: have improved cp Condition: Stable cp Diagnosis - Allergy to seafood cp - Encounter for attention to dressings, sutures and drains - abdominal bethany cp Followup: cp - With: Private Physician - When: 1 week - Reason: Staple/Suture removal Discharge Instructions: - Discharge Summary Sheet cp - Seafood Allergy cp - Sutures, [place], or Adhesive Wound Closure cp Forms: - Medication Reconciliation Form cp - Thank You Letter cp - Antibiotic Education cp - Prescription Opioid Use cp Prescriptions: - Cephalexin 500 mg Oral Capsule - take 1 capsule by ORAL route every 6 hours for 10 days; 40 capsule; Refills: 0, cp Product Selection Permitted - Pepcid 20 mg Oral Tablet - take 1 tablet by ORAL route every 12 hours for 5 days; 10 tablet; Refills: 0, cp Product Selection Permitted - Prednisone 20 mg Oral Tablet - take 2 tablets by ORAL route once daily for 5 days; 10 tablet; Refills: 0, cp Product Selection Permitted Signatures: Margarito Evans PA PA cp Gibson, Lacie, RN RN lg3 Ciaran Greco RN RN sv1 Corrections: (The following items were deleted from the chart) 00:42 00:41 Allergies: ADHD; lg3 lg3 01/18 01:58 03/ 00:55 Possible causes: Patient reports eating seafood dish this evening that cp contained shrimp. Patient denies seafood allergy in the past. Patient also would like abdominal surgical incisions inspected and bethany removed. Patient reports having appendectomy about 1 week ago, cp
--- NOTE | 2022-01-17 02:16 | ER ---
Nurse's Notes [facility] Name: Cecilio Baxter Jr Age: 21 yrs Sex: Male : 2000 Arrival Date: 01/17/2022 Time: 00:29 Bed 14 Private MD: Diagnosis: Allergy to seafood;Encounter for attention to dressings, sutures and drains-abdominal bethany Presentation: 01/17 00:34 Chief complaint: Patient states: used an inhalant (whippets) on Thursday and has a lg3 history of asthma. concerned that the inhalant has affected his health. ate a shrim coctail with oyster juice around 1600 today and has been feeling bad since. feels like throat is closing up and is increasing his anxiety. had appendectomy about a week ago and needs to see if the bethany need to be removed. states that it may be infected. Coronavirus screen: Client denies travel out of the [place] in the last 14 days. At this time, the client does not indicate any symptoms associated with coronavirus-19. Ebola Screen: No symptoms or risks identified at this time. Onset: The symptoms/episode began/occurred gradually. Anaphylaxis evaluation, no signs or symptoms of anaphylaxis were noted. Initial Sepsis Screen: Does the patient meet any 2 criteria? No. Patient's initial sepsis screen is negative. Does the patient have a suspected source of infection? No. Patient's initial sepsis screen is negative. Risk Assessment: Do you want to hurt yourself or someone else? Patient reports no desire to harm self or others. Onset of symptoms is unknown. 00:34 Method Of Arrival: Ambulatory lg3 00:34 Acuity: FIDEL 3 lg3 Triage Assessment: 00:41 General: Appears in no apparent distress. comfortable, Behavior is cooperative, lg3 anxious. Pain: Denies pain. EENT: No deficits noted. No signs and/or symptoms were reported regarding the EENT system. Neuro: No deficits noted. Level of Consciousness is awake, alert, obeys commands, Oriented to person, place, time, situation, Speech is normal. Cardiovascular: No deficits noted. Respiratory: No deficits noted. Airway is patent Trachea midline Respiratory effort is even, unlabored, Respiratory pattern is regular, symmetrical. GI: No deficits noted. Abdomen is flat, non-distended. : No deficits noted. No signs and/or symptoms were reported regarding the genitourinary system. Derm: Skin is intact, is healthy with good turgor, Skin is dry, Wound noted right lower quadrant. Musculoskeletal: No deficits noted. No signs and/or symptoms reported regarding the musculoskeletal system. Circulation, motion, and sensation intact. Capillary refill < 3 seconds, Range of motion: intact in all extremities. Historical: - Allergies: 00:41 No Known Allergies; lg3 - Home Meds: 00:41 None [Active]; lg3 - PMHx: 00:41 adhd; Asthma; Bipolar disorder; lg3 - PSHx: 00:41 Appendectomy; lg3 - Immunization history:: Adult Immunizations up to date, Client reports having NOT received the Covid vaccine. - Social history:: Smoking status: Reported history of juuling and/or vaping. Patient uses alcohol, occasionally. street drugs, LSD. Screenin:44 Abuse screen: Denies threats or abuse. Denies injuries from another. Nutritional lg3 screening: No deficits noted. Tuberculosis screening: No symptoms or risk factors identified. Fall Risk None identified. Assessment: 00:44 Respiratory: Airway is patent Trachea midline Respiratory effort is even, unlabored, lg3 Respiratory pattern is regular, symmetrical, Breath sounds are clear bilaterally. 02:20 Reassessment: Cleared for dischaarge to home by the provider.. sv1 Vital Signs: 00:34 BP 137 / 90; Pulse 77; Resp 18 S; Temp 98.1; Pulse Ox 100% on R/A; Weight 68.04 kg (R); lg3 Height 6 ft. (182.88 cm) (R); Pain 0/10; 01:41 BP 154 / 85 RA Sitting (auto/reg); Pulse 73 MON; Resp 22 S; Temp 98.5(O); Pulse Ox 98% sv1 on R/A; 02:18 BP 101 / 56 RA Sitting (auto/reg); Pulse 62 MON; Resp 16 S; Pulse Ox 100% on R/A; Pain sv1 0/10; 00:34 Body Mass Index 20.34 (68.04 kg, 182.88 cm) lg3 ED Course: 00:29 Patient arrived in ED. wm 00:41 Triage completed. lg3 00:41 Arm band placed on right wrist. lg3 00:48 Margarito Evans PA is PHCP. cp 00:48 Sheryl Longo MD is Attending Physician. cp 00:56 Ciaran Greco, RN is Primary Nurse. sv1 01:41 Patient has correct armband on for positive identification. Bed in low position. Call sv1 light in reach. Side rails up X2. 01:41 Inserted saline lock: 20 gauge in right antecubital area, using aseptic technique. sv1 02:19 No provider procedures requiring assistance completed. IV discontinued. sv1 Administered Medications: 01:36 Drug: Pepcid (famotidine) 20 mg Route: IVP; Site: right antecubital; sv1 02:17 Follow up: Response: No adverse reaction; Wheezing diminished sv1 01:37 Drug: SOLU-Medrol (methylPrednisoLONE) 125 mg Route: IVP; Site: right antecubital; sv1 02:18 Follow up: Response: No adverse reaction; Wheezing diminished sv1 01:37 Drug: Benadryl (diphenhydrAMINE) 25 mg Route: IVP; Site: right antecubital; sv1 02:17 Follow up: Response: No adverse reaction; Anxiety decreased; Wheezing diminished sv1 01:37 Drug: NS 0.9% 500 ml Route: IV; Rate: 500 ml/hr; Site: right antecubital; sv1 01:48 Follow up: Response: No adverse reaction; IV Status: Completed infusion; IV Intake: sv1 500ml Intake: 01:48 IV: 500ml; Total: 500ml. sv1 Outcome: 02:16 Discharge ordered by MD. cp 02:19 Discharged to home ambulatory. sv1 02:19 Condition: improved 02:19 Discharge instructions given to patient. 02:25 Patient left the ED. sv1 Signatures: Margarito Evans PA PA cp Lily Harrington, SHELDON RN lg3 Aubree Bingham Ciaran Greco, RN RN sv1 Corrections: (The following items were deleted from the chart) 00:42 00:41 Allergies: ADHD; lg3 lg3
[2022-01-17 06:34] VITALS: TEMP 98.5
[2022-01-17 06:35] VITALS: BP 101/56; O2SAT 100
== END 2022-01-17 02:25 | disposition home or self-care (01) ==
LOC: ER 00:21
DX: R06.02 Shortness of breath (principal); Z91.013 Allergy to seafood; Z48.01 Encounter for change or removal of surgical wound dressing; Z98.890 Other specified postprocedural states
CPT/HCPCS: 96375; 96374; 99283; J1200; J2930

== ENCOUNTER 2022-01-18 19:00 | Emergency (ER) | payer OTHER ==
[2022-01-18] MEDS ORDERED: METHYLPREDNISOLONE 125 MG INJ ONE (19:53)
[2022-01-18] MEDS ORDERED: DIPHENHYDRAMINE 50 MG/ML VIAL ONE (19:53)
[2022-01-18] MEDS ORDERED: FAMOTIDINE 20 MG/2 ML VIAL IV ONE (19:54)
--- NOTE | 2022-01-18 20:51 | ER ---
Nurse's Notes [facility] Name: Cecilio Baxter Jr Age: 21 yrs Sex: Male : 2000 Arrival Date: 01/18/2022 Time: 19:01 Bed 16 Private MD: Diagnosis: Allergic reaction to seafood Presentation: 01/18 19:06 Chief complaint: Chief complaint: Patient states: "I had an allergic reaction to tw5 something and I feel like this my throat is closing up. I feel like my hands are going numb, my whole body is going numb. I am freaking out.". Coronavirus screen: Vaccine status: Patient reports being unvaccinated. Ebola Screen: Patient negative for fever greater than or equal to 101.5 degrees Fahrenheit, and additional compatible Ebola Virus Disease symptoms Patient denies exposure to infectious person. Patient denies travel to an Ebola-affected area in the 21 days before illness onset. Onset: The symptoms/episode began/occurred suddenly. Anaphylaxis evaluation, abdominal pain. Initial Sepsis Screen: Does the patient meet any 2 criteria? RR > 20 per min. Does the patient have a suspected source of infection? No. Patient's initial sepsis screen is negative. Risk Assessment: Do you want to hurt yourself or someone else? Patient reports no desire to harm self or others. Onset of symptoms is unknown. 19:06 Method Of Arrival: Ambulatory tw5 19:06 Acuity: FIDEL 3 tw5 Triage Assessment: 19:08 General: Appears uncomfortable, Behavior is agitated, anxious. Pain: Complains of pain tw5 in abdomen Pain currently is 8 out of 10 on a pain scale. Historical: - Allergies: 19:08 No Known Allergies; tw5 - Home Meds: 19:08 None [Active]; tw5 - PMHx: 19:08 adhd; Asthma; Bipolar disorder; tw5 - PSHx: 19:08 Appendectomy; tw5 - Immunization history:: Flu vaccine status is unknown. - Social history:: Smoking status: Reported history of juuling and/or vaping. Patient/guardian denies using alcohol, street drugs. Screenin:06 Abuse screen: Denies threats or abuse. Nutritional screening: No deficits noted. tw5 Tuberculosis screening: No symptoms or risk factors identified. Fall Risk None identified. Assessment: 20:09 Respiratory: Airway is patent Respiratory effort is even, unlabored. tw5 20:10 Respiratory: Breath sounds are clear. tw5 Vital Signs: 19:06 BP 121 / 63; Pulse 86; Resp 22; Temp 99.3; Pulse Ox 100% on R/A; Weight 68.04 kg; tw5 Height 6 ft. 1 in. (185.42 cm); Pain 8/10; 20:06 BP 114 / 78 RA Supine (auto/reg); Pulse 71 MON; Resp 18 S; Temp 98.4(O); Pulse Ox 100% tw5 on R/A; Pain 2/10; 21:13 BP 119 / 85 RA Supine (auto/reg); tw5 19:06 Body Mass Index 19.79 (68.04 kg, 185.42 cm) tw5 ED Course: 19:01 Patient arrived in ED. as 19:08 Triage completed. tw5 19:08 Arm band placed on right wrist. tw5 19:19 Yemi Barcenas NP is PHCP. pm1 19:19 Lambert Burris MD is Attending Physician. pm1 19:46 Isa Hutchinson is Primary Nurse. tw5 20:06 Patient has correct armband on for positive identification. Bed in low position. Call tw5 light in reach. Side rails up X2. 21:14 No provider procedures requiring assistance completed. IV discontinued. tw5 Administered Medications: 20:05 Drug: Benadryl (diphenhydrAMINE) 25 mg Route: IVP; Site: left antecubital; tw5 20:42 Follow up: Response: No adverse reaction tw5 20:05 Drug: Pepcid (famotidine) 20 mg Route: IVP; Site: left antecubital; tw5 20:42 Follow up: Response: No adverse reaction tw5 20:06 Drug: SOLU-Medrol (methylPrednisoLONE) 125 mg Route: IVP; Site: left antecubital; tw5 20:43 Follow up: Response: No adverse reaction; Anxiety decreased tw5 Outcome: 20:50 Discharge ordered by . pm1 21:14 Discharged to home ambulatory. tw5 21:14 Condition: improved 21:14 Discharge instructions given to patient. 21:14 Patient left the ED. tw5 Signatures: Ana Santoyo Patrick, NP DIRECTOR OF PHARMACY pm1 Wood, Isa tw5
--- NOTE | 2022-01-18 20:52 | EDPHYS ---
Physician Documentation [facility] Name: Cecilio Baxter Jr Age: 21 yrs Sex: Male : 2000 Arrival Date: 01/18/2022 Time: 19:01 Bed 16 Private MD: ED Physician Lambert Burris HPI: 01/18 19:39 This 21 yrs old Male presents to ER via Ambulatory with complaints of Allergic Reaction.pm1 19:39 The patient presents with swollen throat sensation. Onset: The symptoms/episode pm1 began/occurred today. Associated signs and symptoms: Pertinent positives: hyperventilation with bilateral hand numbness, Pertinent negatives: chest pain, fever, shortness of breath, vomiting. Possible causes: crawfish. At home the patient or guardian has treated the symptoms with nothing. Severity of symptoms: in the emergency department the symptoms are unchanged. The patient has experienced a previous episode, after eating seafood in the past. Patient did not believe that he is allergic to seafood and ate crawfish today. The patient has not recently seen a physician. Historical: - Allergies: 19:08 No Known Allergies; tw5 - Home Meds: 19:08 None [Active]; tw5 - PMHx: 19:08 adhd; Asthma; Bipolar disorder; tw5 - PSHx: 19:08 Appendectomy; tw5 - Immunization history:: Flu vaccine status is unknown. - Social history:: Smoking status: Reported history of juuling and/or vaping. Patient/guardian denies using alcohol, street drugs. ROS: 19:39 Constitutional: Negative for fever, chills, and weight loss, Cardiovascular: Negative pm1 for chest pain, palpitations, and edema, Respiratory: Negative for shortness of breath, cough, wheezing, and pleuritic chest pain. 19:39 Abdomen/GI: Negative for abdominal pain, nausea, vomiting, diarrhea, and constipation, Skin: Negative for injury, rash, and discoloration, Neuro: Negative for headache, weakness, numbness, tingling, and seizure. 19:39 ENT: Positive for sore throat. 19:39 All other systems are negative. Exam: 19:39 Constitutional: This is a well developed, well nourished patient who is awake, alert, pm1 and in no acute distress. Head/Face: Normocephalic, atraumatic. 19:39 Skin: Warm, dry with normal turgor. Normal color with no rashes, no lesions, and no evidence of cellulitis. MS/ Extremity: Pulses equal, no cyanosis. Neurovascular intact. Full, normal range of motion. 19:39 Eyes: Exam is negative for acute changes, Pupils: no acute changes, Extraocular movements: no acute changes, Conjunctiva: no acute changes, no injection. 19:39 ENT: Exam is negative for acute changes, Mouth: no acute changes, Lips: normal, moist, Oral mucosa: normal, pink and intact, moist. 19:39 Cardiovascular: Exam negative for acute changes, Rate: normal, Rhythm: regular, Pulses: no pulse deficits are appreciated. 19:39 Respiratory: Exam negative for acute changes, respiratory distress, shortness of breath, Breath sounds: are clear throughout. 19:39 Neuro: Exam negative for acute changes, Orientation: is normal, Mentation: is normal, Motor: is normal, moves all fours. Vital Signs: 19:06 BP 121 / 63; Pulse 86; Resp 22; Temp 99.3; Pulse Ox 100% on R/A; Weight 68.04 kg; tw5 Height 6 ft. 1 in. (185.42 cm); Pain 8/10; 20:06 BP 114 / 78 RA Supine (auto/reg); Pulse 71 MON; Resp 18 S; Temp 98.4(O); Pulse Ox 100% tw5 on R/A; Pain 2/10; 21:13 BP 119 / 85 RA Supine (auto/reg); tw5 19:06 Body Mass Index 19.79 (68.04 kg, 185.42 cm) tw5 MDM: 19:42 Patient medically screened. pm1 20:48 Data reviewed: vital signs. Data interpreted: Pulse oximetry: on room air is 100 %. pm1 Interpretation: normal. Counseling: I had a detailed discussion with the patient and/or guardian regarding: the historical points, exam findings, and any diagnostic results supporting the discharge/admit diagnosis, the need for outpatient follow up, to return to the emergency department if symptoms worsen or persist or if there are any questions or concerns that arise at home. 01/18 19:39 Order name: IV Saline Lock; Complete Time: 20:05 pm1 Administered Medications: 20:05 Drug: Benadryl (diphenhydrAMINE) 25 mg Route: IVP; Site: left antecubital; tw5 20:42 Follow up: Response: No adverse reaction tw5 20:05 Drug: Pepcid (famotidine) 20 mg Route: IVP; Site: left antecubital; tw5 20:42 Follow up: Response: No adverse reaction tw5 20:06 Drug: SOLU-Medrol (methylPrednisoLONE) 125 mg Route: IVP; Site: left antecubital; tw5 20:43 Follow up: Response: No adverse reaction; Anxiety decreased tw5 Disposition: 01/19 01:32 Co-signature as Attending Physician, Lambert Burris MD. [facility] Disposition Summary: 01/18/22 20:50 Discharge Ordered Location: Home pm1 Problem: new pm1 Symptoms: have improved pm1 Condition: Stable pm1 Diagnosis - Allergic reaction to seafood pm1 Followup: pm1 - With: Emergency Department - When: As needed - Reason: Recheck today's complaints, Continuance of care, Re-evaluation by your physician Followup: pm1 - With: Private Physician - When: 2 - 3 days - Reason: Recheck today's complaints, Continuance of care, Re-evaluation by your physician Discharge Instructions: - Discharge Summary Sheet pm1 - Seafood Allergy pm1 Forms: - Medication Reconciliation Form pm1 - Thank You Letter pm1 - Antibiotic Education pm1 - Prescription Opioid Use pm1 Prescriptions: - Benadryl 25 mg Oral Capsule - take 1 capsule by ORAL route every 6 hours As needed; 30 tablet; Refills: 0, pm1 Product Selection Permitted - Pepcid 20 mg Oral Tablet - take 1 tablet by ORAL route every 12 hours for 10 days; 20 tablet; Refills: 0, pm1 Product Selection Permitted - Medrol ([place]) 4 mg Oral Tablets, Dose Pack - take 1 tablet by ORAL route as directed - follow package instructions; 1 pm1 packet; Refills: 0, Product Selection Permitted Signatures: Yemi Barcenas, CHARLES BUSINESS DEVELOPMENT CONSULTANT pm1 Lambert Burris MD MD [facility] Isa Hutchinson tw5
[2022-01-18 21:19] VITALS: O2SAT 100
[2022-01-18 21:21] VITALS: BP 119/85; TEMP 98.4
== END 2022-01-18 21:14 | disposition home or self-care (01) ==
LOC: ER 19:00
DX: R07.0 Pain in throat (principal); Z91.013 Allergy to seafood
CPT/HCPCS: 96375; 96374; 99283; J1200; J2930

== ENCOUNTER 2022-01-19 02:05 | Emergency (ER) | payer OTHER ==
[2022-01-19] MEDS ORDERED: ALBUTEROL 2.5 MG/3 ML NEB SOL ONE (03:09)
[2022-01-19] MEDS ORDERED: IPRATROPIUM BROM 0.5MG/2.5ML ONE (03:09)
--- NOTE | 2022-01-19 04:05 | ER ---
Nurse's Notes [facility] Name: Cecilio Baxter Jr Age: 21 yrs Sex: Male : 2000 Arrival Date: 01/19/2022 Time: 02:08 Bed 18 Private MD: Diagnosis: Unspecified asthma with (acute) exacerbation Presentation: 01/19 02:11 Chief complaint: Patient states: "When I left earlier I was breathing fine, about 20-30 tw5 min went by and I started having a hard time breathing again.". Coronavirus screen: Vaccine status: Patient reports being unvaccinated. Ebola Screen: Patient negative for fever greater than or equal to 101.5 degrees Fahrenheit, and additional compatible Ebola Virus Disease symptoms Patient denies exposure to infectious person. Patient denies travel to an Ebola-affected area in the 21 days before illness onset. Initial Sepsis Screen: Does the patient meet any 2 criteria? No. Patient's initial sepsis screen is negative. Does the patient have a suspected source of infection? No. Patient's initial sepsis screen is negative. Risk Assessment: Do you want to hurt yourself or someone else? Patient reports no desire to harm self or others. Onset of symptoms was January 19, 2022. 02:11 Acuity: FIDEL 4 tw5 02:11 Method Of Arrival: Ambulatory tw5 Triage Assessment: 02:13 General: Appears in no apparent distress. Behavior is anxious. Pain: Complains of pain tw5 in chest Pain currently is 6 out of 10 on a pain scale. Respiratory: Reports shortness of breath Onset: The symptoms/episode began/occurred suddenly, the patient has mild shortness of breath. Historical: - Allergies: 02:13 No Known Allergies; tw5 - PMHx: 02:13 adhd; Asthma; Bipolar disorder; tw5 - PSHx: 02:13 Appendectomy; tw5 - Immunization history:: Flu vaccine status is unknown. - Social history:: Smoking status: Reported history of juuling and/or vaping. Screenin:14 Abuse screen: Denies threats or abuse. Denies injuries from another. Nutritional tw5 screening: No deficits noted. Tuberculosis screening: No symptoms or risk factors identified. Fall Risk None identified. Assessment: 02:30 General: Appears in no apparent distress. comfortable, Behavior is cooperative, vc1 anxious. Cardiovascular: Rhythm is sinus rhythm. Respiratory: Reports shortness of breath Airway is patent Respiratory effort is even, unlabored, Respiratory pattern is regular, symmetrical, Breath sounds are clear. 03:40 Reassessment: Patient and/or family updated on plan of care and expected duration. Pain vc1 level reassessed. Patient is alert, oriented x 3, equal unlabored respirations, skin warm/dry/pink. Patient states symptoms have improved. Vital Signs: 02:11 BP 113 / 78; Pulse 97; Resp 16; Temp 98.8; Pulse Ox 100% on R/A; Weight 68.04 kg; tw5 Height 6 ft. 1 in. (185.42 cm); Pain 6/10; 03:39 BP 110 / 75; Pulse 94; Resp 16 S; Pulse Ox 100% on R/A; vc1 02:11 Body Mass Index 19.79 (68.04 kg, 185.42 cm) tw5 ED Course: 02:08 Patient arrived in ED. ja2 02:13 Triage completed. tw5 02:13 Arm band placed on right wrist. tw5 02:22 Suzette Pappsa, RN is Primary Nurse. vc1 02:30 Patient has correct armband on for positive identification. Call light in reach. Pulse vc1 ox on. NIBP on. 02:36 Lambert Burris MD is Attending Physician. 7 03:10 EKG done, by ED staff, reviewed by Lambert Burris MD. lt3 03:28 Chest Single View XRAY In Process Unspecified. EDMS 04:13 No provider procedures requiring assistance completed. Patient did not have IV access vc1 during this emergency room visit. Administered Medications: 03:12 Drug: Albuterol 2.5 mg Route: Inhalation; vc1 03:12 Drug: AtroVENT (ipratropium) Aerosol 0.5 mg Route: Inhalation; vc1 Outcome: 04:05 Discharge ordered by . 7 04:13 Discharged to home ambulatory. vc1 04:13 Condition: improved 04:13 Discharge instructions given to patient, Instructed on discharge instructions, follow up and referral plans. medication usage, Demonstrated understanding of instructions, follow-up care, medications, Prescriptions given X 1. 04:14 Patient left the ED. vc1 Signatures: Dispatcher [employer] Lambert Burris MD MD 7 Sophia Meadows2 Isa Hutchinson tw5 Carmella Rojas 3 Suzette Pappas RN RN vc1 Corrections: (The following items were deleted from the chart) 03:40 03:34 General: Appears in no apparent distress. comfortable, Behavior is cooperative, vc1 anxious, vc1 03:40 03:34 Cardiovascular: Rhythm is sinus rhythm vc1 vc1 03:40 03:34 Respiratory: Reports shortness of breath Airway is patent Respiratory effort is vc1 even, unlabored, Respiratory pattern is regular, symmetrical, Breath sounds are clear vc1
--- NOTE | 2022-01-19 04:05 | EDPHYS ---
Physician Documentation [facility] Name: Cecilio Baxter Jr Age: 21 yrs Sex: Male : 2000 Arrival Date: 01/19/2022 Time: 02:08 Bed 18 Private MD: ED Physician Lambert Burris HPI: 01/19 03:05 This 21 yrs old Male presents to ER via Ambulatory with complaints of Breathing mh7 Difficulty. 03:05 The patient has shortness of breath during heavy activity. Onset: The symptoms/episode mh7 began/occurred yesterday. Duration: The symptoms are intermittent, with no pattern. The patient's shortness of breath is aggravated by nothing, is alleviated by nothing. Associated signs and symptoms: Pertinent positives: Wheezing, Pertinent negatives: chest pain, non-productive cough, productive cough, diaphoresis, dizziness, fever, hemoptysis, loss of consciousness, nausea, numbness in extremities, visual changes, vomiting. Severity of symptoms: At their worst the symptoms were mild today, in the emergency department the symptoms have improved moderately. States that he has been here earlier for treatment of allergic reaction to seafood. He states that sometime after he left the ER he started having shortness of breath like an asthma attack. Denies any fever, chest pain, nausea, vomiting, rash, facial or throat swelling, numbness/tingling, or weakness.. Historical: - Allergies: 02:13 No Known Allergies; tw5 - PMHx: 02:13 adhd; Asthma; Bipolar disorder; tw5 - PSHx: 02:13 Appendectomy; tw5 - Immunization history:: Flu vaccine status is unknown. - Social history:: Smoking status: Reported history of juuling and/or vaping. ROS: 03:05 Constitutional: Negative for fever, chills, and weight loss, Eyes: Negative for injury, mh7 pain, redness, and discharge, ENT: Negative for injury, pain, and discharge, Neck: Negative for injury, pain, and swelling, Cardiovascular: Negative for chest pain, palpitations, and edema, Abdomen/GI: Negative for abdominal pain, nausea, vomiting, diarrhea, and constipation, Back: Negative for injury and pain, : Negative for injury, bleeding, discharge, and swelling, MS/Extremity: Negative for injury and deformity, Skin: Negative for injury, rash, and discoloration, Neuro: Negative for headache, weakness, numbness, tingling, and seizure, Psych: Negative for depression, anxiety, suicide ideation, homicidal ideation, and hallucinations, Allergy/Immunology: Negative for hives, rash, and allergies, Endocrine: Negative for neck swelling, polydipsia, polyuria, polyphagia, and marked weight changes, Hematologic/Lymphatic: Negative for swollen nodes, abnormal bleeding, and unusual bruising. Exam: 03:05 Constitutional: This is a well developed, well nourished patient who is awake, alert, mh7 and in no acute distress. Head/Face: Normocephalic, atraumatic. Eyes: Pupils equal round and reactive to light, extra-ocular motions intact. Lids and lashes normal. Conjunctiva and sclera are non-icteric and not injected. Cornea within normal limits. Periorbital areas with no swelling, redness, or edema. Neck: Trachea midline, no thyromegaly or masses palpated, and no cervical lymphadenopathy. Supple, full range of motion without nuchal rigidity, or vertebral point tenderness. No Meningismus. Chest/axilla: Normal chest wall appearance and motion. Nontender with no deformity. No lesions are appreciated. Cardiovascular: Regular rate and rhythm with a normal S1 and S2. No gallops, murmurs, or rubs. Normal PMI, no JVD. No pulse deficits. 03:05 Abdomen/GI: Soft, non-tender, with normal bowel sounds. No distension or tympany. No guarding or rebound. No evidence of tenderness throughout. Back: No spinal tenderness. No costovertebral tenderness. Full range of motion. Skin: Warm, dry with normal turgor. Normal color with no rashes, no lesions, and no evidence of cellulitis. MS/ Extremity: Pulses equal, no cyanosis. Neurovascular intact. Full, normal range of motion. Neuro: Awake and alert, GCS 15, oriented to person, place, time, and situation. Cranial nerves II-XII grossly intact. Motor strength 5/5 in all extremities. Sensory grossly intact. Cerebellar exam normal. Normal gait. Psych: Awake, alert, with orientation to person, place and time. Behavior, mood, and affect are within normal limits. 03:05 Respiratory: the patient does not display signs of respiratory distress, Respirations: normal, Breath sounds: rhonchi, that are mild, are scattered, Respiratory rate: 16 03:15 ECG was reviewed by the Attending Physician. [facility] Vital Signs: 02:11 BP 113 / 78; Pulse 97; Resp 16; Temp 98.8; Pulse Ox 100% on R/A; Weight 68.04 kg; tw5 Height 6 ft. 1 in. (185.42 cm); Pain 6/10; 03:39 BP 110 / 75; Pulse 94; Resp 16 S; Pulse Ox 100% on R/A; vc1 02:11 Body Mass Index 19.79 (68.04 kg, 185.42 cm) tw5 MDM: 04:02 Differential diagnosis: Anxiety Reaction asthma, Bronchitis pneumonia, Pneumothorax 7 Psychogenic reactive airway disease. Data reviewed: vital signs, nurses notes, old medical records, EKG, radiologic studies, plain films. Data interpreted: Pulse oximetry: on room air is 100 %. Interpretation: normal. Counseling: I had a detailed discussion with the patient and/or guardian regarding: the historical points, exam findings, and any diagnostic results supporting the discharge/admit diagnosis, radiology results, the need for outpatient follow up, to return to the emergency department if symptoms worsen or persist or if there are any questions or concerns that arise at home. Response to treatment: the patient's symptoms have resolved after treatment, the patient's blood pressure is in an acceptable range, mental status has returned to baseline, the patient no longer shows bradycardia, the patient is not short of breath, the patient is not tachycardic, the patient's pain is gone, the patient's temperature has normalized. 04:05 Patient medically screened. [facility] 01/19 03:00 Order name: Chest Single View XRAY [facility] 01/19 03:03 Order name: EKG; Complete Time: 03:04 [facility] 03 03:03 Order name: EKG - Nurse/Tech; Complete Time: 03:11 [facility] EC:15 Rate is 79 beats/min. Rhythm is regular, Normal Sinus Rhythm with No ectopy. QRS Tad [facility] is Normal. [place] interval is normal. QRS interval is normal. QT interval is normal. No Q waves. T waves are Normal. No ST changes noted. Clinical impression: Normal ECG. Administered Medications: 03:12 Drug: Albuterol 2.5 mg Route: Inhalation; vc1 03:12 Drug: AtroVENT (ipratropium) Aerosol 0.5 mg Route: Inhalation; vc1 Disposition Summary: 01/19/22 04:05 Discharge Ordered Location: Home [facility] Problem: an acute exacerbation [facility] Symptoms: have improved [facility] Condition: Stable [facility] Diagnosis - Unspecified asthma with (acute) exacerbation [facility] Followup: [facility] - With: Private Physician - When: 1 - 2 days - Reason: Worsening of condition, Recheck today's complaints, Continuance of care, Re-evaluation by your physician Discharge Instructions: - Discharge Summary Sheet [facility] - Asthma, Adult [facility] Forms: - Medication Reconciliation Form [facility] - Thank You Letter [facility] - Antibiotic Education [facility] - Prescription Opioid Use [facility] Prescriptions: - albuterol sulfate 90 mcg/actuation Inhalation HFA aerosol inhaler - inhale 2 puff by INHALATION route every 4-6 hours As needed; 1 Inhaler; [facility] Refills: 0, Product Selection Permitted Signatures: Dispatcher [employer] Lambert Valdivia MD MD [facility] Isa Hutchinson [facility] Suzette Pappas, RN RN vc1
[2022-01-19 04:18] VITALS: TEMP 98.8; O2SAT 100
[2022-01-19 04:20] VITALS: BP 110/75
--- NOTE | 2022-01-19 08:11 | RAD REPORT ---
EXAM DESCRIPTION: RAD - Chest Single View - 01/19/2022 3:28 am CLINICAL HISTORY: SOB COMPARISON: None TECHNIQUE: AP portable chest image was obtained 01/19/2022 3:28 am . FINDINGS: Lungs are clear. Heart and vasculature are normal. No measurable pleural effusion and no p neumothorax. No acute bone finding. Minimal scoliotic curvature in the spine. No acute aortic finding s suspected. IMPRESSION: No acute cardiopulmonary process.
--- NOTE | 2022-01-19 09:23 | EKG ---
Test Date: 2022-01-19 Test Time: 03:11:31 Logistics Planning Manager: MEAGANT MEASUREMENT RESULTS: Intervals: Rate: 79 CT: 162 QRSD: 90 QT: 366 QTc: 419 [place]: P: 80 CT: 162 QRS: 58 T: 50 INTERPRETIVE STATEMENTS: Normal sinus rhythm with sinus arrhythmia Normal ECG No previous ECG available for comparison Electronically Signed On 01-19-22 09:22:38 INDOOR LANDSCAPE ARCHITECT by Bart Gunn
== END 2022-01-19 04:14 | disposition home or self-care (01) ==
LOC: ER 02:05
DX: J45.901 Unspecified asthma with (acute) exacerbation (principal)
CPT/HCPCS: 71045; 93005; 99285

== ENCOUNTER 2022-01-21 20:15 | Emergency (ER) | payer OTHER ==
--- NOTE | 2022-01-21 20:58 | EDPHYS ---
Physician Documentation [facility] Name: Cecilio Baxter Jr Age: 21 yrs Sex: Male : 2000 Arrival Date: 01/21/2022 Time: 20:16 Bed 11 Private MD: ED Physician Richard Call HPI: 01/21 20:51 This 21 yrs old Male presents to ER via Ambulatory with complaints of Staple Removal. cp 20:51 The patient has bethany on the abdomen. Previous treatment: the care was rendered at [facility]. Patient reports having appendectomy performed by DR Allen around or December. Patient reports he has been unable to f/u with DR Allen due to "car trouble". No complaints expressed today. Historical: - PSHx: 20:28 Appendectomy; al4 - Immunization history:: Adult Immunizations up to date. - Social history:: Smoking status: Reported history of juuling and/or vaping. ROS: 20:53 Constitutional: Negative for body aches, chills, fever, poor PO intake. cp 20:53 Cardiovascular: Negative for chest pain. 20:53 Abdomen/GI: Negative for abdominal pain, nausea, vomiting, and diarrhea. 20:53 Skin: Positive for of the abdomen, bethany. 20:53 All other systems are negative. Exam: 20:54 Skin: Wound recheck: Staple laceration closure: the wound is healing well, the edges cp are well approximated, no evidence of dehiscence, no drainage, no erythema, no swelling. Vital Signs: 20:25 BP 113 / 75; Pulse 86; Resp 20; Temp 97.7; Pulse Ox 100% ; Weight 72.57 kg; Height 6 al4 ft. 1 in. (185.42 cm); Pain 4/10; 21:06 BP 110 / 65; Pulse 84; Resp 16; Pulse Ox 100% on R/A; Pain 0/10; st1 20:25 Body Mass Index 21.11 (72.57 kg, 185.42 cm) al4 Procedures: 20:54 Suture/Staple removal: Removed 9 bethany, from abdomen, site appears well healed, cp Patient tolerated well. MDM: 20:35 Patient medically screened. cp 20:58 Data reviewed: vital signs, nurses notes, and as a result, I will discharge patient. cp 20:58 Counseling: I had a detailed discussion with the patient and/or guardian regarding: the cp historical points, exam findings, and any diagnostic results supporting the discharge/admit diagnosis, to return to the emergency department if symptoms worsen or persist or if there are any questions or concerns that arise at home. Response to treatment: the patient's symptoms have markedly improved after treatment, and as a result, I will discharge patient. 01/21 20:55 Order name: Dressing - Wound: bacitracin; Complete Time: 21:05 cp Administered Medications: No medications were administered Disposition: 22:42 Co-signature as Attending Physician, Richard Call MD I agree with the assessment and kdr plan of care. Disposition Summary: 01/21/22 20:58 Discharge Ordered Location: Home cp Problem: new cp Symptoms: have improved cp Condition: Stable cp Diagnosis - Encounter for removal of sutures - bethany cp Followup: cp - With: Ruddy Allen MD - When: As needed - Reason: Worsening of condition Discharge Instructions: - Discharge Summary Sheet cp - Sutures, Sproul, or Adhesive Wound Closure cp Forms: - Medication Reconciliation Form cp - Thank You Letter cp - Antibiotic Education cp - Prescription Opioid Use cp Signatures: Richard Call MD MD [facility] Margarito Evans PA PA cp [place]
--- NOTE | 2022-01-21 20:58 | ER ---
Nurse's Notes [facility] Name: Cecilio Baxter Jr Age: 21 yrs Sex: Male : 2000 Arrival Date: 01/21/2022 Time: 20:16 Bed 11 Private MD: Diagnosis: Encounter for removal of sutures-bethany Presentation: 01/21 20:25 Chief complaint: Patient states: here for staple removal after having appendix removed al4 December 04. Coronavirus screen: Vaccine status: Patient reports being unvaccinated. Ebola Screen: No symptoms or risks identified at this time. Initial Sepsis Screen: Does the patient meet any 2 criteria? No. Patient's initial sepsis screen is negative. Does the patient have a suspected source of infection? No. Patient's initial sepsis screen is negative. Risk Assessment: Do you want to hurt yourself or someone else? Patient reports no desire to harm self or others. Onset of symptoms was January 21, 2022. 20:25 Method Of Arrival: Ambulatory al4 20:25 Acuity: FIDEL 4 al4 Triage Assessment: 20:28 General: Appears in no apparent distress. comfortable, Behavior is calm, cooperative, al4 appropriate for age. Pain: Denies pain. Neuro: Level of Consciousness is awake, alert, obeys commands. Cardiovascular: Capillary refill < 3 seconds Patient's skin is warm and dry. Respiratory: Airway is patent Respiratory effort is unlabored, Respiratory pattern is regular. Musculoskeletal: Range of motion:. Historical: - PSHx: 20:28 Appendectomy; al4 - Immunization history:: Adult Immunizations up to date. - Social history:: Smoking status: Reported history of juuling and/or vaping. Screenin:05 Abuse screen: Denies threats or abuse. Nutritional screening: No deficits noted. st1 Tuberculosis screening: No symptoms or risk factors identified. Fall Risk None identified. No fall in past 12 months (0 pts). No secondary diagnosis (0 pts). No IV (0 pts). Ambulatory Aid- None/Bed Rest/Nurse Assist (0 pts). Gait- Normal/Bed Rest/Wheelchair (0 pts) Mental Status- Oriented to own ability (0 pts). Total Robledo Fall Scale indicates No Risk (0-24 pts). Assessment: 21:04 Reassessment: Patient appears in no apparent distress at this time. Patient and/or st1 family updated on plan of care and expected duration. Pain level reassessed. Patient is alert, oriented x 3, equal unlabored respirations, skin warm/dry/pink. General: Appears in no apparent distress. comfortable, Behavior is calm, cooperative. Vital Signs: 20:25 BP 113 / 75; Pulse 86; Resp 20; Temp 97.7; Pulse Ox 100% ; Weight 72.57 kg; Height 6 al4 ft. 1 in. (185.42 cm); Pain 4/10; 21:06 BP 110 / 65; Pulse 84; Resp 16; Pulse Ox 100% on R/A; Pain 0/10; st1 20:25 Body Mass Index 21.11 (72.57 kg, 185.42 cm) al4 ED Course: 20:16 Patient arrived in ED. kc5 20:28 Triage completed. al4 20:29 Arm band placed on right wrist. al4 20:30 Margarito Evans PA is PHCP. cp 20:30 Richard Call MD is Attending Physician. cp 20:57 Ruddy Allen MD is Referral Physician. cp 21:02 Alison Voss, SHELDON is Primary Nurse. st1 21:05 Patient has correct armband on for positive identification. st1 21:05 No provider procedures requiring assistance completed. st1 21:07 Patient did not have IV access during this emergency room visit. st1 Administered Medications: No medications were administered Outcome: 20:58 Discharge ordered by MD. cp 21:06 Discharged to home ambulatory. st1 21:06 Condition: good 21:06 Discharge instructions given to patient. 21:06 Instructed on discharge instructions, follow up and referral plans. Demonstrated understanding of instructions, follow-up care. 21:22 Patient left the ED. st1 Signatures: Margarito Evans PA PA cp Clark, Kasey kc5 [place] al4 Alison Voss, SHELDON RN st1
[2022-01-21 21:45] VITALS: TEMP 97.7; O2SAT 100
[2022-01-21 21:46] VITALS: BP 110/65
== END 2022-01-21 21:22 | disposition home or self-care (01) ==
LOC: ER 20:15
DX: Z48.02 Encounter for removal of sutures (principal)
CPT/HCPCS: 99281

== ENCOUNTER 2022-01-22 22:50 | Emergency (ER) | payer OTHER ==
[2022-01-22] MEDS ORDERED: predniSONE 20 MG TAB ONE (23:27)
[2022-01-22] MEDS ORDERED: IPRATROPIUM BROM 0.5MG/2.5ML ONE (23:27)
[2022-01-22] MEDS ORDERED: ALBUTEROL INHALER 60 PUFF/8 GM IH ONE (23:28)
[2022-01-22] MEDS ORDERED: ALBUTEROL 2.5 MG/3 ML NEB SOL ONE (23:29)
--- NOTE | 2022-01-23 00:40 | EDPHYS ---
Physician Documentation [facility] Name: Cecilio Baxter Jr Age: 21 yrs Sex: Male : 2000 Arrival Date: 01/22/2022 Time: 22:51 Bed 16 Private MD: ED Physician Lambert Burris HPI: 01/22 23:17 This 21 yrs old Male presents to ER via Ambulatory with complaints of Shortness Of cp Breath. 23:17 The patient has shortness of breath at rest. Onset: The symptoms/episode began/occurred cp today. Associated signs and symptoms: Pertinent negatives: chest pain, productive cough, fever. Attempted to use inhaler that did not work. Historical: - PMHx: 23:10 adhd; Asthma; Bipolar disorder; david - PSHx: 23:10 Appendectomy; david - Immunization history:: Adult Immunizations not immunized. - Social history:: Smoking status: Patient denies any tobacco usage or history of. ROS: 23:20 Constitutional: Negative for body aches, chills, fever, poor PO intake. cp 23:20 Eyes: Negative for injury, pain, redness, and discharge. cp 23:20 ENT: Negative for drainage from ear(s), ear pain, sore throat, difficulty swallowing, difficulty handling secretions. 23:20 Cardiovascular: Negative for chest pain, edema, palpitations. 23:20 Respiratory: Positive for shortness of breath, Negative for cough, wheezing. 23:20 Abdomen/GI: Negative for abdominal pain, nausea, vomiting, and diarrhea. 23:20 Back: Negative for pain at rest, pain with movement. 23:20 Neuro: Negative for altered mental status, headache, weakness. 23:20 All other systems are negative. Exam: 23:20 Constitutional: The patient appears in no acute distress, alert, awake, comfortable, cp non-toxic, well developed, well nourished. 23:20 Head/Face: Normocephalic, atraumatic. cp 23:20 Eyes: Periorbital structures: appear normal, Conjunctiva: normal, no exudate, no injection, Sclera: no appreciated abnormality, Lids and lashes: appear normal, bilaterally. 23:20 ENT: External ear(s): are unremarkable, Nose: is normal, Mouth: Lips: moist, Oral mucosa: pink and intact, moist, Posterior pharynx: Airway: no evidence of obstruction, patent, swelling, is not appreciated, erythema, is not appreciated. 23:20 Chest/axilla: Inspection: normal, Palpation: is normal, no crepitus, no tenderness. 23:20 Cardiovascular: Rate: normal, Rhythm: regular, Edema: is not appreciated, JVD: is not appreciated. 23:20 Respiratory: the patient does not display signs of respiratory distress, Respirations: normal, no use of accessory muscles, no retractions, labored breathing, is not present, Breath sounds: bronchial sounds, that are mild, are heard diffusely, stridor, is not appreciated, wheezing: is not appreciated. 23:20 Abdomen/GI: Exam negative for discomfort, distension, guarding, Inspection: abdomen appears normal. Vital Signs: 23:08 BP 122 / 84; Pulse 79; Resp 16; Temp 98.2; Pulse Ox 100% on R/A; Weight 70.31 kg; david Height 6 ft. 1 in. (185.42 cm); Pain 0/10; 23:12 BP 122 / 84; Pulse 79; Resp 16; Temp 98.2; Pulse Ox 100% on R/A; Pain 0/10; david 03 00:15 BP 127 / 90; Pulse 84; Resp 16 S; Pulse Ox 100% on R/A; al4 01/22 23:08 Body Mass Index 20.45 (70.31 kg, 185.42 cm) david MDM: 01/22 23:15 Patient medically screened. cp 01/23 00:00 Differential diagnosis: asthma, Bronchitis pneumonia, Pneumothorax pulmonary edema, cp Pulmonary Embolism. 00:38 Data reviewed: vital signs, nurses notes, radiologic studies, plain films. cp 00:38 Test interpretation: by ED physician or midlevel provider: plain radiologic studies, cp chest xray negative for infiltrates. Counseling: I had a detailed discussion with the patient and/or guardian regarding: the historical points, exam findings, and any diagnostic results supporting the discharge/admit diagnosis, radiology results, to return to the emergency department if symptoms worsen or persist or if there are any questions or concerns that arise at home. Response to treatment: the patient's symptoms have markedly improved after treatment, and as a result, I will discharge patient. 01/22 23:17 Order name: XRAY Chest (1 view) cp Administered Medications: 01/22 23:25 CANCELLED (Physician Discretion): Albuterol 2.5 mg Inhalation once cp 23:33 Drug: Albuterol 2.5 mg Route: Inhalation; al4 01/23 00:30 Follow up: Response: No adverse reaction; Marked relief of symptoms al4 01/22 23:34 Drug: AtroVENT (ipratropium) Aerosol 0.5 mg Route: Inhalation; al4 01/23 00:30 Follow up: Response: No adverse reaction; Marked relief of symptoms al4 01/22 23:34 Drug: predniSONE 60 mg Route: PO; al4 01/23 00:30 Follow up: Response: No adverse reaction; Marked relief of symptoms al4 01:00 Drug: Albuterol HFA Inhaler 2 puffs {Note: given at discharge. inhaler given to patient al4 per order from Margarito Evans PA .} Route: Inhalation; Disposition: 02:39 Co-signature as Attending Physician, Lambert Burris MD. 7 Disposition Summary: 01/23/22 00:39 Discharge Ordered Location: Home cp Problem: an acute exacerbation cp Symptoms: have improved cp Condition: Stable cp Diagnosis - Unspecified asthma with (acute) exacerbation cp Followup: cp - With: Private Physician - When: 1 - 2 days - Reason: Recheck today's complaints Discharge Instructions: - Discharge Summary Sheet cp - Asthma, Adult cp Forms: - Medication Reconciliation Form cp - Thank You Letter cp - Antibiotic Education cp - Prescription Opioid Use cp Prescriptions: - albuterol sulfate 90 mcg/actuation Inhalation HFA aerosol inhaler - inhale 1 puff by INHALATION route every 4-6 hours; 1 Inhaler; Refills: 0, cp Product Selection Permitted - Prednisone 20 mg Oral Tablet - take 2 tablets by ORAL route once daily for 5 days; 10 tablet; Refills: 0, cp Product Selection Permitted Signatures: Dispatcher [employer] EDMS Margarito Evans PA PA cp Holmes, Maurice, MD MD [facility] [place] Brenda, RN RN david Corrections: (The following items were deleted from the chart) 01/22 23:25 23:17 Albuterol 2.5 mg Inhalation once ordered. cp cp
--- NOTE | 2022-01-23 00:40 | ER ---
Nurse's Notes [facility] Name: Cecilio Baxter Jr Age: 21 yrs Sex: Male : 2000 Arrival Date: 01/22/2022 Time: 22:51 Bed 16 Private MD: Diagnosis: Unspecified asthma with (acute) exacerbation Presentation: 01/22 23:08 Chief complaint: Patient states: "I been short of breath". Coronavirus screen: Vaccine david status: Patient reports being unvaccinated. Client denies travel out of the [place] in the last 14 days. At this time, the client does not indicate any symptoms associated with coronavirus-19. Ebola Screen: Patient negative for fever greater than or equal to 101.5 degrees Fahrenheit, and additional compatible Ebola Virus Disease symptoms Patient denies exposure to infectious person. Patient denies travel to an Ebola-affected area in the 21 days before illness onset. Initial Sepsis Screen: Does the patient meet any 2 criteria? No. Patient's initial sepsis screen is negative. Does the patient have a suspected source of infection? No. Patient's initial sepsis screen is negative. Risk Assessment: Do you want to hurt yourself or someone else? Patient reports no desire to harm self or others. Onset of symptoms was January 22, 2022. 23:08 Method Of Arrival: Ambulatory david 23:08 Acuity: FIDEL 4 david Triage Assessment: 23:11 General: Appears in no apparent distress. comfortable, Behavior is calm, cooperative. david General: This pt is familiar to this nurse and although he reports SOB, no s/sx are noted. O2 sat 100%.. Pain: Denies pain. Respiratory: No deficits noted. Reports shortness of breath Onset: The symptoms/episode began/occurred today, the patient has mild shortness of breath. Historical: - PMHx: 23:10 adhd; Asthma; Bipolar disorder; david - PSHx: 23:10 Appendectomy; david - Immunization history:: Adult Immunizations not immunized. - Social history:: Smoking status: Patient denies any tobacco usage or history of. Screenin:19 Abuse screen: Denies threats or abuse. Nutritional screening: No deficits noted. al4 Tuberculosis screening: No symptoms or risk factors identified. Fall Risk None identified. Assessment: 23:14 General: Appears in no apparent distress. comfortable. Pain: Denies pain. Neuro: Level al4 of Consciousness is awake, alert, obeys commands, Oriented to person, place, time, situation. Cardiovascular: Heart tones present Capillary refill < 3 seconds Patient's skin is warm and dry. Respiratory: Airway is patent Respiratory effort is unlabored, Respiratory pattern is regular, Breath sounds are clear bilaterally. Musculoskeletal: Range of motion: intact in all extremities. 01/23 00:30 Reassessment: Patient appears in no apparent distress at this time. Patient and/or al4 family updated on plan of care and expected duration. Pain level reassessed. Patient is alert, oriented x 3, equal unlabored respirations, skin warm/dry/pink. 01:04 Reassessment: Patient appears in no apparent distress at this time. Patient is alert, al4 oriented x 3, equal unlabored respirations, skin warm/dry/pink. Vital Signs: 01/22 23:08 BP 122 / 84; Pulse 79; Resp 16; Temp 98.2; Pulse Ox 100% on R/A; Weight 70.31 kg; david Height 6 ft. 1 in. (185.42 cm); Pain 0/10; 23:12 BP 122 / 84; Pulse 79; Resp 16; Temp 98.2; Pulse Ox 100% on R/A; Pain 0/10; david 03 00:15 BP 127 / 90; Pulse 84; Resp 16 S; Pulse Ox 100% on R/A; al4 01/22 23:08 Body Mass Index 20.45 (70.31 kg, 185.42 cm) david ED Course: 01/22 22:51 Patient arrived in ED. jj6 23:10 Triage completed. david 23:11 Margarito Evans PA is PHCP. cp 23:11 Lambert Burris MD is Attending Physician. cp 23:12 Harry Hill is Primary Nurse. al4 23:12 Arm band placed on. david 23:19 Patient has correct armband on for positive identification. Placed in gown. Side rails al4 up X2. 23:37 XRAY Chest (1 view) In Process Unspecified. EDMS 01/23 01:03 No provider procedures requiring assistance completed. Patient did not have IV access al4 during this emergency room visit. Administered Medications: 01/22 23:25 CANCELLED (Physician Discretion): Albuterol 2.5 mg Inhalation once cp 23:33 Drug: Albuterol 2.5 mg Route: Inhalation; al4 01/23 00:30 Follow up: Response: No adverse reaction; Marked relief of symptoms al4 01/22 23:34 Drug: AtroVENT (ipratropium) Aerosol 0.5 mg Route: Inhalation; al4 01/23 00:30 Follow up: Response: No adverse reaction; Marked relief of symptoms al4 01/22 23:34 Drug: predniSONE 60 mg Route: PO; al4 01/23 00:30 Follow up: Response: No adverse reaction; Marked relief of symptoms al4 01:00 Drug: Albuterol HFA Inhaler 2 puffs {Note: given at discharge. inhaler given to patient al4 per order from Margarito Evans PA .} Route: Inhalation; Outcome: 00:39 Discharge ordered by MD. cp 01:03 Discharged to home ambulatory. al4 01:03 Discharged to home ambulatory. 01:03 Condition: stable 01:03 Discharge instructions given to patient, Instructed on discharge instructions, follow up and referral plans. medication usage, Demonstrated understanding of instructions, follow-up care, medications. 01:09 Patient left the ED. al4 Signatures: Dispatcher [employer] EDMS Margarito Evans PA PA cp Jeffries, Jennifer jj6 Ledbetter, Alexis al4 Aggie Trujillo RN RN david Corrections: (The following items were deleted from the chart) 01/22 23:19 23:14 Respiratory: Airway is patent Respiratory effort is unlabored, Respiratory al4 pattern is regular, al4 23:42 23:14 Cardiovascular: Capillary refill < 3 seconds Patient's skin is warm and dry. al4 al4
[2022-01-23] MEDS ORDERED: ALBUTEROL INHALER 60 PUFF/8 GM IH ONE (00:56)
[2022-01-23 01:25] VITALS: TEMP 98.2; O2SAT 100
[2022-01-23 01:28] VITALS: BP 127/90
--- NOTE | 2022-01-23 08:42 | RAD REPORT ---
EXAM DESCRIPTION: RAD - Chest Single View - 01/22/2022 11:37 pm CLINICAL HISTORY: SOB Chest pain. COMPARISON: Chest Single View dated 01/19/2022 FINDINGS: Portable technique limits examination quality. The lungs are grossly clear. The heart is normal in size. No displaced fractures. IMPRESSION: No acute intrathoracic process suspected.
== END 2022-01-23 01:09 | disposition home or self-care (01) ==
LOC: ER 22:50
DX: J45.901 Unspecified asthma with (acute) exacerbation (principal)
CPT/HCPCS: 71045; 99284; J7512

== ENCOUNTER 2022-12-09 03:19 | Emergency (ER) | payer OTHER ==
[2022-12-09] MEDS ORDERED: HYDROCODONE/APAP 10/325 TAB ONE (03:52)
[2022-12-09] MEDS ORDERED: IBUPROFEN 400 MG TAB ONE (03:52)
--- NOTE | 2022-12-09 04:30 | EDPHYS ---
Physician Documentation [facility] Name: Cecilio Baxter Jr Age: 22 yrs Sex: Male : 2000 Arrival Date: 12/09/2022 Time: 03:20 Bed 13 Private MD: ED Physician Rei Mcdonald HPI: 12/09 03:31 This 22 yrs old Male presents to ER via Unassigned with complaints of Hand Injury. rn 03:31 The patient or guardian reports decreased range of motion, injury, pain. The complaints rn affect the right hand diffusely. Onset: The symptoms/episode began/occurred just prior to arrival. Modifying factors: The symptoms are alleviated by holding still, the symptoms are aggravated by movement. Associated signs and symptoms: Pertinent negatives: cyanosis distally, decreased sensation distally, numbness distally, tingling distally. Severity of symptoms: At their worst the symptoms were moderate, in the emergency department the symptoms are unchanged. The patient has experienced a previous episode. Pt reports voluntarily punched a glass window/windshield 12 times with right hand, is right handed. No other injuries. Reports previous boxer's fracture to same hand in past, left ER without treatment and has had a crooked pinky finger since then. States fingers not any different than they normally are. . Historical: - Allergies: 03:34 No Known Allergies; as6 - PMHx: 03:34 adhd; Asthma; Bipolar disorder; as6 - PSHx: 03:34 Appendectomy; as6 - Immunization history:: Client reports having NOT received the Covid vaccine. - Social history:: Smoking status: Reported history of juuling and/or vaping. - Family history:: not pertinent. - Hospitalizations: : No recent hospitalization is reported. ROS: 03:31 Constitutional: Negative for fever, chills, and weight loss, MS/Extremity: + right hand rn injury and pain Skin: + skin tears and dry blood Exam: 03:31 Constitutional: This is a well developed, well nourished patient who is awake, alert, rn and in no acute distress. MS/ Extremity: Pulses equal, no cyanosis. Neurovascular intact. Dry blood, some glass on top of skin, hard to discern if laceration or just small skin tears. Vital Signs: 03:32 BP 130 / 76; Pulse 92; Resp 16 S; Temp 98.2(O); Pulse Ox 97% on R/A; Weight 79.83 kg as6 (R); Height 6 ft. 1 in. (185.42 cm) (R); Pain 10/10; 03:32 Body Mass Index 23.22 (79.83 kg, 185.42 cm) as6 MDM: 03:20 Patient medically screened. rn 04:27 Differential diagnosis: closed fracture, contusion, abrasion. Data reviewed: vital rn signs, nurses notes, radiologic studies, plain films, and as a result, I will discharge patient. Independent interpretation of the following test(s) in the Emergency Department X-Ray: My interpretation is Xray right hand neg for fracture/dislocation. Counseling: I had a detailed discussion with the patient and/or guardian regarding: the historical points, exam findings, and any diagnostic results supporting the discharge/admit diagnosis, radiology results, the need for outpatient follow up, to return to the emergency department if symptoms worsen or persist or if there are any questions or concerns that arise at home. Response to treatment: the patient's symptoms have mildly improved after treatment, and as a result, I will discharge patient. Special discussion: I discussed with the patient/guardian in detail that at this point there is no indication for admission to the hospital. It is understood, however, that if the symptoms persist or worsen the patient needs to return immediately for re-evaluation. ED course: Xray right hand neg for fracture or dislocation, no foreign bodies, hand irrigated and glass removed by nurse, hand reexamined after cleaning and no foreign body identified. Small and superficial abrasions/skin tears, no laceration that requires sutures. . 12/09 03:30 Order name: XRAY Hand RIGHT 3 View rn 12/09 03:30 Order name: academic intern 12/09 04:30 Order name: Splint - Volar Wrist Splint rn Administered Medications: 03:52 Drug: [place] (HYDROcodone-acetaminophen) 10 mg-325 mg 1 tabs Route: PO; as6 04:36 Follow up: Response: No adverse reaction as6 03:52 Drug: Motrin (ibuprofen) 800 mg Route: PO; as6 04:36 Follow up: Response: No adverse reaction as6 Disposition Summary: 12/09/22 04:29 Discharge Ordered Location: Home rn Problem: new rn Symptoms: have improved rn Condition: Stable rn Diagnosis - Contusion of right hand rn - Abrasion of right hand rn Followup: rn - With: Private Physician - When: As needed - Reason: Recheck today's complaints, Re-evaluation by your physician Discharge Instructions: - Discharge Summary Sheet rn - Abrasion rn - Hand Contusion rn Forms: - Medication Reconciliation Form rn - Thank You Letter rn - Antibiotic ostomy rn - Prescription Opioid Use rn Signatures: Dispatcher [employer] EDRei Shen MD MD rn Slawson, Ashby, RN RN as6 Corrections: (The following items were deleted from the chart) 03:33 03:31 Pt reports voluntarily punched a glass window/windshield 12 times with right rn hand, is right handed. No other injuries. Reports previous boxer's fracture to same hand in past. . rn
--- NOTE | 2022-12-09 04:30 | ER ---
Nurse's Notes [facility] Name: Cecilio Baxter Jr Age: 22 yrs Sex: Male : 2000 Arrival Date: 12/09/2022 Time: 03:20 Bed 13 Private MD: Diagnosis: Contusion of right hand;Abrasion of right hand Presentation: 12/09 03:32 Chief complaint: Patient states: "I punched a window a few times and I think my hand is as6 broken". Coronavirus screen: At this time, the client does not indicate any symptoms associated with coronavirus-19. Ebola Screen: No symptoms or risks identified at this time. Initial Sepsis Screen: Does the patient meet any 2 criteria? No. Patient's initial sepsis screen is negative. Does the patient have a suspected source of infection? No. Patient's initial sepsis screen is negative. Risk Assessment: Do you want to hurt yourself or someone else? Patient reports no desire to harm self or others. Onset of symptoms was December 09, 2022. 03:32 Method Of Arrival: Ambulatory as6 03:32 Acuity: FIDEL 4 as6 Historical: - Allergies: 03:34 No Known Allergies; as6 - PMHx: 03:34 adhd; Asthma; Bipolar disorder; as6 - PSHx: 03:34 Appendectomy; as6 - Immunization history:: Client reports having NOT received the Covid vaccine. - Social history:: Smoking status: Reported history of juuling and/or vaping. - Family history:: not pertinent. - Hospitalizations: : No recent hospitalization is reported. Screenin:56 [facility] ED Fall Risk Assessment (Adult) Score/Fall Risk Level 0 - 2 = Low Risk. Abuse as6 screen: Denies threats or abuse. Denies injuries from another. Nutritional screening: No deficits noted. Tuberculosis screening: No symptoms or risk factors identified. Assessment: 03:30 General: Appears uncomfortable, Behavior is cooperative, anxious. Pain: Complains of as6 pain in right hand. Neuro: Level of Consciousness is awake, alert, obeys commands, Oriented to person, place, time, situation. Cardiovascular: Capillary refill < 3 seconds Patient's skin is warm and dry. Respiratory: Respiratory effort is even, unlabored, Respiratory pattern is regular, symmetrical. Derm: Wound noted right hand Wound is abrasions. Musculoskeletal: Bony deformity noted of right hand. Vital Signs: 03:32 BP 130 / 76; Pulse 92; Resp 16 S; Temp 98.2(O); Pulse Ox 97% on R/A; Weight 79.83 kg as6 (R); Height 6 ft. 1 in. (185.42 cm) (R); Pain 10/10; 03:32 Body Mass Index 23.22 (79.83 kg, 185.42 cm) as6 ED Course: 03:20 Patient arrived in ED. ja2 03:20 Rei Mcdonald MD is Attending Physician. rn 03:25 Cristofer Real, SHELDON is Primary Nurse. as6 03:34 Triage completed. as6 03:34 Arm band placed on. as6 03:46 XRAY Hand RIGHT 3 View In Process Unspecified. EDMS 03:57 Bed in low position. Call light in reach. Side rails up X 1. as6 04:36 No provider procedures requiring assistance completed. Patient did not have IV access as6 during this emergency room visit. Administered Medications: 03:52 Drug: [place] (HYDROcodone-acetaminophen) 10 mg-325 mg 1 tabs Route: PO; as6 04:36 Follow up: Response: No adverse reaction as6 03:52 Drug: Motrin (ibuprofen) 800 mg Route: PO; as6 04:36 Follow up: Response: No adverse reaction as6 Medication: 04:37 VIS not applicable for this client. as6 Outcome: 04:29 Discharge ordered by . rn 04:37 Discharged to home ambulatory. as6 04:37 Condition: stable 04:37 Discharge instructions given to pt left before receiving discharge instructions and splint 04:40 Patient left the ED. as6 Signatures: Dispatcher [employer] [facility] Rei Mcdonald MD MD rn Alexander, Jessica [facility] Cristofer Real, RN RN as6
[2022-12-09 06:58] VITALS: BP 130/76; TEMP 98.2; O2SAT 97
--- NOTE | 2022-12-09 12:03 | RAD REPORT ---
EXAM DESCRIPTION: RAD - Hand Right 3 View - 12/09/2022 3:44 am CLINICAL HISTORY: The patient is 22 years old and is Male; PAIN TECHNIQUE: Frontal, lateral and oblique views of the right hand. COMPARISON: No relevant prior studies available. FINDINGS: BONES/JOINTS: Unremarkable. No acute fracture. No dislocation. SOFT TISSUES: Soft tissue swelling of the dorsum of the hand is present specifically overlying t he fifth digit. No radiopaque foreign body. IMPRESSION: Soft tissue swelling of the dorsum of the hand is present specifically overlying the fif th digit. No underlying acute bony abnormality. Electronically signed by: Jess Uriarte MD 12/09/2022 3:51 AM TECHNICAL SERVICE ENGINEER Due to temporary technical issues with the PACS/Fluency reporting system, reports are being signed by the in house radiologists without review as a courtesy to insure prompt reporting. The interpreting radiologist is fully responsible for the content of the report.
== END 2022-12-09 04:40 | disposition home or self-care (01) ==
LOC: ER 03:19
DX: S60.511A Abrasion of right hand, initial encounter (principal); S60.221A Contusion of right hand, initial encounter
CPT/HCPCS: 99283

== ENCOUNTER 2023-07-21 08:31 | Emergency (ER) | payer OTHER ==
--- NOTE | 2023-07-21 09:02 | EDPHYS ---
Physician Documentation [facility] Name: Cecilio Baxter Jr Age: 23 yrs Sex: Male : 2000 Arrival Date: 07/21/2023 Time: 08:31 Bed IW2 Private MD: ED Physician Rei Mcdonald HPI: 07/21 09:05 This 23 yrs old Male presents to ER via Ambulatory with complaints of Nausea/Vomiting. snw 09:05 The patient presents to the emergency department with vomiting, daily. Onset: The snw symptoms/episode began/occurred acutely, 3 month(s) ago. Associated signs and symptoms: Pertinent positives: vomiting. It is unknown whether or not the patient has had similar symptoms in the past. The patient has not recently seen a physician. Historical: - Allergies: : No Known Allergies; hb - PMHx: 09: adhd; Asthma; Bipolar disorder; hb - PSHx: 09:01 Appendectomy; hb - Immunization history:: Adult Immunizations up to date. - Social history:: Smoking status: Patient denies any tobacco usage or history of. ROS: 10:17 Constitutional: Negative for fever, chills, and weight loss, Eyes: Negative for injury, snw pain, redness, and discharge, ENT: Negative for injury, pain, and discharge, Neck: Negative for injury, pain, and swelling, Cardiovascular: Negative for chest pain, palpitations, and edema, Respiratory: Negative for shortness of breath, cough, wheezing, and pleuritic chest pain, Abdomen/GI: Negative for abdominal pain, nausea, diarrhea, and constipation, +Vomiting daily, randomly, without nausea, intense gag reflex Back: Negative for injury and pain, : Negative for injury, bleeding, discharge, and swelling, MS/Extremity: Negative for injury and deformity, Skin: Negative for injury, rash, and discoloration, Neuro: Negative for headache, weakness, numbness, tingling, and seizure, Psych: Negative for depression, anxiety, suicide ideation, homicidal ideation, and hallucinations. Exam: 10:19 Constitutional: This is a well developed, well nourished patient who is awake, alert, snw and in no acute distress. Head/Face: Normocephalic, atraumatic. Eyes: Pupils equal round and reactive to light, extra-ocular motions intact. Lids and lashes normal. Conjunctiva and sclera are non-icteric and not injected. Cornea within normal limits. Periorbital areas with no swelling, redness, or edema. ENT: Nares patent. No nasal discharge, no septal abnormalities noted. Tympanic membranes are normal and external auditory canals are clear. Oropharynx with no redness, swelling, or masses, exudates, or evidence of obstruction, uvula midline. Mucous membranes moist. Neck: Trachea midline, no thyromegaly or masses palpated, and no cervical lymphadenopathy. Supple, full range of motion without nuchal rigidity, or vertebral point tenderness. No Meningismus. Chest/axilla: Normal chest wall appearance and motion. Nontender with no deformity. No lesions are appreciated. Cardiovascular: Regular rate and rhythm with a normal S1 and S2. No gallops, murmurs, or rubs. Normal PMI, no JVD. No pulse deficits. Respiratory: Lungs have equal breath sounds bilaterally, clear to auscultation and percussion. No rales, rhonchi or wheezes noted. No increased work of breathing, no retractions or nasal flaring. Abdomen/GI: Soft, non-tender, with normal bowel sounds. No distension or tympany. No guarding or rebound. No evidence of tenderness throughout. Back: No spinal tenderness. No costovertebral tenderness. Full range of motion. Skin: Warm, dry with normal turgor. Normal color with no rashes, no lesions, and no evidence of cellulitis. MS/ Extremity: Pulses equal, no cyanosis. Neurovascular intact. Full, normal range of motion. Neuro: Awake and alert, GCS 15, oriented to person, place, time, and situation. Cranial nerves II-XII grossly intact. Motor strength 5/5 in all extremities. Sensory grossly intact. Cerebellar exam normal. Normal gait. Psych: Awake, alert, with orientation to person, place and time. Behavior, mood, and affect are within normal limits. Vital Signs: 08:58 BP 136 / 74; Pulse 96; Resp 16; Temp 98; Pulse Ox 100% on R/A; Weight 77.11 kg; Height hb 6 ft. 1 in. ; Pain 0/10; 08:58 Body Mass Index 22.43 (77.11 kg, 185.42 cm) hb 08:58 Pain Scale: Adult hb MDM: 09:01 Patient medically screened. snw 09:04 Differential diagnosis: Nonspecific abd pain, gastritis, gastroenteritis. Data snw reviewed: vital signs, nurses notes. Counseling: I had a detailed discussion with the patient and/or guardian regarding the historical points, exam findings, and any diagnostic results supporting the discharge/admit diagnosis, the presence of at least one elevated blood pressure reading (>120/80) during this emergency department visit, the need for outpatient follow up, to return to the emergency department if symptoms worsen or persist or if there are any questions or concerns that arise at home. Special discussion: Based on the history and exam findings, there is no indication for further emergent testing or inpatient evaluation. I discussed with the patient/guardian the need to see the ENT specialist for further evaluation of the symptoms. I discussed with the patient/guardian the need to see the arabic teacher for further evaluation of the symptoms. I discussed with the patient/guardian the need to see the primary care provider for further evaluation of the symptoms. Administered Medications: No medications were administered Disposition: 13:52 Co-signature as Attending Physician, Rei Mcdonald MD I reviewed the patient's care rn provided by the Advanced Practice Provider and agree with the diagnosis and treatment plan. Disposition Summary: 07/21/23 09:02 Discharge Ordered Location: Home snw Condition: Stable snw Diagnosis - Vomiting snw Followup: snw - With: Emergency Department - When: As needed - Reason: Worsening of condition Followup: snw - With: Private Physician - When: 2 - 3 days - Reason: Recheck today's complaints, Continuance of care, Re-evaluation by your physician Discharge Instructions: - Gastroesophageal Reflux Disease, Adult snw - Allergic Rhinitis, Adult snw - Vomiting, Adult snw - Discharge Summary Sheet hb Forms: - Medication Reconciliation Form snw - Thank You Letter snw - Antibiotic Education snw - Prescription Opioid Use snw - Patient Portal Instructions snw - Leadership Thank You Letter snw - Work release form hb Prescriptions: - Protonix 40 mg Oral Tablet - take 1 tablet by ORAL route once daily; 30 tablet; Refills: 0, Product snw Selection Permitted - Zyrtec 10 mg Oral Tablet - take 1 tablet by ORAL route once daily As needed; 20 tablet; Refills: 0, snw Product Selection Permitted Signatures: Kendal Bateman FNP-C [employer]ELOPER-[employer] Rei Mcdonald MD MD rn Baxter, Heather, SHELDON RN hb
--- NOTE | 2023-07-21 09:02 | ER ---
Nurse's Notes [facility] Name: Cecilio Baxter Jr Age: 23 yrs Sex: Male : 2000 Arrival Date: 07/21/2023 Time: 08:31 Bed IW2 Private MD: Diagnosis: Vomiting Presentation: 07/21 08:58 Chief complaint: Vomiting x years. Pt stated "I feel fine but I feel like there is hb something wrong with my throat.". Coronavirus screen: At this time, the client does not indicate any symptoms associated with coronavirus-19. Ebola Screen: No symptoms or risks identified at this time. Initial Sepsis Screen: Does the patient meet any 2 criteria? No. Patient's initial sepsis screen is negative. Does the patient have a suspected source of infection? No. Patient's initial sepsis screen is negative. Risk Assessment: Do you want to hurt yourself or someone else? Patient reports no desire to harm self or others. Onset of symptoms is unknown. 08:58 Method Of Arrival: Ambulatory hb 08:58 Acuity: FIDEL 4 hb Historical: - Allergies: 09:01 No Known Allergies; hb - PMHx: 09:01 adhd; Asthma; Bipolar disorder; hb - PSHx: 09:01 Appendectomy; hb - Immunization history:: Adult Immunizations up to date. - Social history:: Smoking status: Patient denies any tobacco usage or history of. Vital Signs: 08:58 BP 136 / 74; Pulse 96; Resp 16; Temp 98; Pulse Ox 100% on R/A; Weight 77.11 kg; Height hb 6 ft. 1 in. ; Pain 0/10; 08:58 Body Mass Index 22.43 (77.11 kg, 185.42 cm) hb 08:58 Pain Scale: Adult hb ED Course: 08:33 Patient arrived in ED. mg5 08:34 Kendal Bateman FNP-C is PHCP. snw 08:34 Rei Mcdonald MD is Attending Physician. snw 09:01 Triage completed. hb 09:01 Arm band placed on. hb 09:17 Lillian Shepard, RN is Primary Nurse. hb Administered Medications: No medications were administered Outcome: 09:02 Discharge ordered by . snw 09:17 Patient left the ED. hb Signatures: Kendal Bateman FNP-C MRI SUPERVISOR-Csnw Lillian Shepard, RN RN Thao Moura mg5 Corrections: (The following items were deleted from the chart) 09: 08:58 BP 136 / 74; Pulse 96bpm; Resp 16bpm; Pulse Ox 100% RA; Temp 98F; Pain 0/10, hb Adult; hb 09: 08:58 Acuity: FIDEL 3 hb hb
[2023-07-21 09:28] VITALS: BP 136/74; TEMP 98; O2SAT 100
== END 2023-07-21 09:17 | disposition home or self-care (01) ==
LOC: ER 08:31
DX: R11.2 Nausea with vomiting, unspecified (principal); F90.9 Attention-deficit hyperactivity disorder, unspecified type; J45.909 Unspecified asthma, uncomplicated; F31.9 Bipolar disorder, unspecified
CPT/HCPCS: 99281

== ENCOUNTER 2023-07-31 07:30 | Emergency (ER) | payer OTHER ==
[2023-07-31] MEDS ORDERED: KETOROLAC 30 MG/ML INJ ONE (08:02)
[2023-07-31 08:30] LABS: Specific Gravity > 1.030 (1.005-1.030); Urine Bilirubin NEGATIVE (Negative); Urine Blood Negative (Negative); Urine Clarity Clear (Clear); Urine Color Light-Yellow (Yellow); Urine Glucose NEGATIVE (Negative); Urine Protein NEGATIVE (Negative); Urine Urobilinogen 1+ (Normal)
--- NOTE | 2023-07-31 08:56 | RAD REPORT ---
EXAM DESCRIPTION: RAD - Lumbar Spine 3 Views - 07/31/2023 8:34 am CLINICAL HISTORY: PAIN COMPARISON: Lumbar Spine 3 Views dated 02/15/2021 TECHNIQUE: Lumbar spine, 3 views. FINDINGS: Lumbar vertebral bodies are normal in height and alignment. No fracture or acute bony proc ess seen. No disc space narrowing. No other significant findings. IMPRESSION: Negative Lumbar Spine examination.
[2023-07-31] MEDS ORDERED: DIAZEPAM 5 MG TABLET ONE (09:12)
[2023-07-31] MEDS ORDERED: HYDROCODONE/APAP 10/325 TAB ONE (09:13)
[2023-07-31] MEDS ORDERED: dexAMETHasone 10 MG/ML VIAL ONE (09:13)
--- NOTE | 2023-07-31 09:25 | ER ---
Nurse's Notes [facility] Name: Cecilio Baxter Jr Age: 23 yrs Sex: Male : 2000 Arrival Date: 07/31/2023 Time: 07:30 Bed 17 Private MD: Diagnosis: Sprain of other parts of lumbar spine and pelvis;Sciatica Presentation: 07/31 07:50 Chief complaint: Patient states: low back pain since yesterday after lifting boxes all jl7 day. Coronavirus screen: At this time, the client does not indicate any symptoms associated with coronavirus-19. Ebola Screen: No symptoms or risks identified at this time. Initial Sepsis Screen: Does the patient meet any 2 criteria? No. Patient's initial sepsis screen is negative. Does the patient have a suspected source of infection? No. Patient's initial sepsis screen is negative. Risk Assessment: Do you want to hurt yourself or someone else? Patient reports no desire to harm self or others. Onset of symptoms was July 30, 2023. 07:50 Method Of Arrival: Ambulatory [facility] 07:50 Acuity: FIDEL 4 jl7 Triage Assessment: 07:53 General: Appears in no apparent distress. uncomfortable, Behavior is calm, cooperative, jl7 appropriate for age. Pain: Complains of pain in low back area Pain currently is 10 out of 10 on a pain scale. Musculoskeletal: Swelling absent. Historical: - Allergies: 07:53 No Known Allergies; jl7 - Home Meds: 07:53 None [Active]; jl7 - PMHx: 07:53 adhd; Asthma; Bipolar disorder; jl7 - PSHx: 07:53 Appendectomy; jl7 - Immunization history:: Adult Immunizations unknown. - Social history:: Smoking status: Reported history of juuling and/or vaping. Screenin:02 [facility] ED Fall Risk Assessment (Adult) History of falling in the last 3 months, ap3 including since admission No falls in past 3 months (0 pts). Abuse screen: Denies threats or abuse. Nutritional screening: No deficits noted. Tuberculosis screening: No symptoms or risk factors identified. Assessment: 08:03 General: Appears uncomfortable, Behavior is calm, cooperative, appropriate for age. ap3 Pain: Complains of pain in low back area. Neuro: Level of Consciousness is awake, alert, obeys commands, Oriented to person, place, time, situation, Appropriate for age. Cardiovascular: Patient's skin is warm and dry. Respiratory: Airway is patent Respiratory effort is even, unlabored, Respiratory pattern is regular, symmetrical. 09:47 Reassessment: Patient appears in no apparent distress at this time. Pt reports jl7 decreased pain Patient states symptoms have improved. Vital Signs: 07:50 Weight 77.11 kg; Height 6 ft. 0 in. ; Pain 10/10; jl7 08:01 BP 124 / 64; Pulse 58; Resp 18; Temp 98.4; Pulse Ox 99% ; ap3 09:46 BP 112 / 73; Pulse 54; Resp 15; Pulse Ox 100% ; jl7 07:50 Body Mass Index 23.06 (77.11 kg, 182.88 cm) jl7 07:50 Pain Scale: Adult jl7 ED Course: 07:33 Patient arrived in ED. mg5 07:37 Margarito Souza MD is Attending Physician. alem 07:53 Triage completed. jl7 07:53 Arm band placed on right wrist. jl7 07:55 Provided Education on: use of call moeller. jl7 08:01 Payton Hernández, RN is Primary Nurse. ap3 08:02 Patient has correct armband on for positive identification. Bed in low position. Call ap3 light in reach. Side rails up X 1. Adult w/ patient. Pulse ox on. NIBP on. 08:36 Lumbar Spine (3 Views) XRAY In Process Unspecified. EDMS 09:48 No provider procedures requiring assistance completed. Patient did not have IV access jl7 during this emergency room visit. Administered Medications: 08:02 Drug: Ketorolac IM 60 mg Route: IM; Site: left ventrogluteal; ap3 09:47 Follow up: Response: No adverse reaction; Pain is decreased jl7 09:07 Drug: Dexamethasone IM 10 mg Route: IM; Site: left gluteus; ap3 09:47 Follow up: Response: No adverse reaction jl7 09:07 Drug: Diazepam PO 10 mg Route: PO; ap3 09:47 Follow up: Response: No adverse reaction; Pain is decreased jl7 09:07 Drug: Shiloh PO 10 mg-325 mg 1 tabs Route: PO; ap3 09:47 Follow up: Response: No adverse reaction; Pain is decreased jl7 Medication: 08:02 VIS not applicable for this client. ap3 Outcome: 09:24 Discharge ordered by . alem 09:48 Discharged to home ambulatory. bryce 09:48 Condition: stable 09:48 Discharge instructions given to patient, significant other, Instructed on discharge instructions, follow up and referral plans. medication usage, Demonstrated understanding of instructions, follow-up care, medications, Prescriptions given X 4. 09:49 Patient left the ED. jl7 Signatures: Dispatcher [employer] EDIL Margarito Souza MD MD cha Leal, Jahala, RN RN jl7 Payton Hernández RN RN maria esther3 Thao Moura mg5
--- NOTE | 2023-07-31 09:25 | EDPHYS ---
Physician Documentation [facility] Name: Cecilio Baxter Jr Age: 23 yrs Sex: Male : 2000 Arrival Date: 07/31/2023 Time: 07:30 Bed 17 Private MD: ED Physician Margarito Souza HPI: 07/31 09:03 This 23 yrs old Male presents to ER via Ambulatory with complaints of Back alem Pain - Low. 09:03 The patient presents with pain that is acute. alem Historical: - Allergies: 07:53 No Known Allergies; jl7 - Home Meds: 07:53 None [Active]; jl7 - PMHx: 07:53 adhd; Asthma; Bipolar disorder; jl7 - PSHx: 07:53 Appendectomy; jl7 - Immunization history:: Adult Immunizations unknown. - Social history:: Smoking status: Reported history of juuling and/or vaping. ROS: 09:05 Constitutional: Negative for fever, chills, and weight loss, Eyes: Negative for injury, alem pain, redness, and discharge, ENT: Negative for injury, pain, and discharge, Neck: Negative for injury, pain, and swelling, Cardiovascular: Negative for chest pain, palpitations, and edema, Respiratory: Negative for shortness of breath, cough, wheezing, and pleuritic chest pain, Abdomen/GI: Negative for abdominal pain, nausea, vomiting, diarrhea, and constipation, : Negative for injury, bleeding, discharge, and swelling, MS/Extremity: Negative for injury and deformity, Skin: Negative for injury, rash, and discoloration, Neuro: Negative for headache, weakness, numbness, tingling, and seizure, Psych: Negative for depression, anxiety, suicide ideation, homicidal ideation, and hallucinations, Allergy/Immunology: Negative for hives, rash, and allergies, Endocrine: Negative for neck swelling, polydipsia, polyuria, polyphagia, and marked weight changes, Hematologic/Lymphatic: Negative for swollen nodes, abnormal bleeding, and unusual bruising. 09:05 Back: Positive for decreased range of motion, pain at rest, radiated pain, of the left low back and right low back. Exam: 09:05 Constitutional: This is a well developed, well nourished patient who is awake, alert, alem and in no acute distress. Head/Face: Normocephalic, atraumatic. Eyes: Pupils equal round and reactive to light, extra-ocular motions intact. Lids and lashes normal. Conjunctiva and sclera are non-icteric and not injected. Cornea within normal limits. Periorbital areas with no swelling, redness, or edema. ENT: Nares patent. No nasal discharge, no septal abnormalities noted. Tympanic membranes are normal and external auditory canals are clear. Oropharynx with no redness, swelling, or masses, exudates, or evidence of obstruction, uvula midline. Mucous membranes moist. Neck: Trachea midline, no thyromegaly or masses palpated, and no cervical lymphadenopathy. Supple, full range of motion without nuchal rigidity, or vertebral point tenderness. No Meningismus. Chest/axilla: Normal chest wall appearance and motion. Nontender with no deformity. No lesions are appreciated. Cardiovascular: Regular rate and rhythm with a normal S1 and S2. No gallops, murmurs, or rubs. Normal PMI, no JVD. No pulse deficits. Respiratory: Lungs have equal breath sounds bilaterally, clear to auscultation and percussion. No rales, rhonchi or wheezes noted. No increased work of breathing, no retractions or nasal flaring. Abdomen/GI: Soft, non-tender, with normal bowel sounds. No distension or tympany. No guarding or rebound. No evidence of tenderness throughout. Male : Normal genitalia with no discharge or lesions. Skin: Warm, dry with normal turgor. Normal color with no rashes, no lesions, and no evidence of cellulitis. MS/ Extremity: Pulses equal, no cyanosis. Neurovascular intact. Full, normal range of motion. Neuro: Awake and alert, GCS 15, oriented to person, place, time, and situation. Cranial nerves II-XII grossly intact. Motor strength 5/5 in all extremities. Sensory grossly intact. Cerebellar exam normal. Normal gait. Psych: Awake, alert, with orientation to person, place and time. Behavior, mood, and affect are within normal limits. 09:05 Back: pain, that is moderate, ROM is painful, with all movement, normal spinal alignment noted, CVA tenderness, that is moderate, muscle spasm, is appreciated in the left low back, left mid back, right mid back and right low back. Vital Signs: 07:50 Weight 77.11 kg; Height 6 ft. 0 in. ; Pain 10/10; jl7 08:01 BP 124 / 64; Pulse 58; Resp 18; Temp 98.4; Pulse Ox 99% ; ap3 09:46 BP 112 / 73; Pulse 54; Resp 15; Pulse Ox 100% ; jl7 07:50 Body Mass Index 23.06 (77.11 kg, 182.88 cm) jl7 07:50 Pain Scale: Adult jl7 MDM: 07:37 Patient medically screened. alem 09:21 Differential diagnosis: chronic back pain, Fatigue Fracture Osteoarthritis ruptured alem disc, Scoliosis sprain, Ureterolithiasis. Data reviewed: vital signs, nurses notes, radiologic studies, plain films. Consideration of Admission/Observation Escalation of care including admission/observation considered. I considered the following discharge prescriptions or medication management in the emergency department Medications were administered in the Emergency Department. See MAR. Independent interpretation of the following test(s) in the Emergency Department X-Ray: My interpretation is lumbar pain. Test considered but Not performed: Labs: no labs. Care significantly affected by the following chronic conditions: asthma, bipolar, adhd. 07/31 07:39 Order name: Urinalysis w/ reflexes; Complete Time: 08:55 alem 07/31 07:39 Order name: Lumbar Spine (3 Views) XRAY alem Administered Medications: 08:02 Drug: Ketorolac IM 60 mg Route: IM; Site: left ventrogluteal; ap3 09:47 Follow up: Response: No adverse reaction; Pain is decreased jl7 09:07 Drug: Dexamethasone IM 10 mg Route: IM; Site: left gluteus; ap3 09:47 Follow up: Response: No adverse reaction jl7 09:07 Drug: Diazepam PO 10 mg Route: PO; ap3 09:47 Follow up: Response: No adverse reaction; Pain is decreased jl7 09:07 Drug: Manlius PO 10 mg-325 mg 1 tabs Route: PO; ap3 09:47 Follow up: Response: No adverse reaction; Pain is decreased jl7 Disposition Summary: 07/31/23 09:24 Discharge Ordered Location: Home alem Problem: new alem Symptoms: have improved alem Condition: Stable alem Diagnosis - Sprain of other parts of lumbar spine and pelvis alem - Sciatica alem Followup: alem - With: Private Physician - When: 2 - 3 days - Reason: Recheck today's complaints, Continuance of care, Re-evaluation by your physician Discharge Instructions: - Discharge Summary Sheet alem - Acute Back Pain, Adult alem - Sciatica alem - Sciatica, [id number] alem - Low Back Sprain or Strain Rehab [facility] Forms: - Work release form alem - Medication Reconciliation Form [facility] - Thank You Letter alem - Antibiotic Education alem - Prescription Opioid Use alem - Patient Portal Instructions [facility] - Leadership Thank You Letter [facility] Prescriptions: - acetaminophen-codeine 300-30 mg Oral tablet - take 2 tablet by ORAL route every 6 hours as needed for pain; 20 tablet; alem Refills: 0, Product Selection Permitted - dexamethasone 2 mg Oral tablet - take 1 tablet by ORAL route 2 times per day; 10 tablet; Refills: 0, Product [facility] Selection Permitted - Diclofenac Sodium 75 mg Oral Tablet Sustained Release - take 1 tablet by ORAL route 2 times per day; 30 tablet; Refills: 0, Product [facility] Selection Permitted - Cyclobenzaprine 5 mg Oral Tablet - take 1 tablet by ORAL route 3 times per day As needed; 15 tablet; Refills: 0, [facility] Product Selection Permitted Signatures: Dispatcher [employer] Margarito Acharya MD MD cha Leal, Jahala, RN RN jl7 Payton Hernández RN RN ap3
[2023-07-31 10:04] VITALS: TEMP 98.4
[2023-07-31 10:06] VITALS: BP 112/73; O2SAT 100
== END 2023-07-31 09:49 | disposition home or self-care (01) ==
LOC: ER 07:30
DX: S33.5XXA Sprain of ligaments of lumbar spine, initial encounter (principal); M54.30 Sciatica, unspecified side
CPT/HCPCS: 81003; 72100; 96372; 99284; J1100

== ENCOUNTER 2023-09-24 18:00 | Emergency (ER) | payer OTHER ==
--- NOTE | 2023-09-24 19:20 | ER ---
Nurse's Notes [facility] Name: Cecilio Baxter Jr Age: 23 yrs Sex: Male : 2000 Arrival Date: 09/24/2023 Time: 18:00 Bed IW5 [facility] MD: Diagnosis: Presentation: 09/24 19:19 Chief complaint: Attempted to call multiple times from the lobby. Pt eloped prior to kd3 being triaged. Assessment: 18:24 Reassessment: pt not in lobby when called. ED Course: 18:02 Patient arrived in ED. mr 18:18 Margarito Evans PA is PHCP. cp 18:18 Berhane Thornton DO is Attending Physician. cp Administered Medications: No medications were administered Outcome: 19:20 Patient left the ED. kd3 Signatures: Samanta Gold, Reg Reg Sabrina Carrera RN RN Margarito Evans PA PA cp Doucette, Kyli, RN RN kd3
--- NOTE | 2023-09-24 19:20 | EDPHYS ---
Physician Documentation [facility] Name: Cecilio Baxter Jr Age: 23 yrs Sex: Male : 2000 Arrival Date: 09/24/2023 Time: 18:00 Bed IW5 Private MD: ED Physician Berhane Thornton MDM: 09/24 18:32 Patient medically screened. cp 18:40 ED course: patient called in lobby and no answer. cp Administered Medications: No medications were administered Disposition: 20:51 I was immediately available on-site in the Emergency Department for consultation in the ms3 care of the patient. Disposition Summary: 09/24/23 19:20 Eloped Notes: Disposition: Before Triage kd3 Reason: unknown kd3 Signatures: Margarito Evans PA PA cp Berhane Thornton, DO DO ms3 Jinny Barker RN RN kd3
== END 2023-09-24 19:20 | disposition left against medical advice (07) ==
LOC: ER 18:00
DX: Z53.21 Procedure and treatment not carried out due to patient leaving prior to being seen by health care provider (principal)
CPT/HCPCS: 99281